=== PATIENT | male | born 1950 | race Caucasian/White ===

== ENCOUNTER 2018-06-15 10:12 | Inpatient (IN) | payer MEDICARE, OTHER, SELFPAY ==
[2018-06-15] VITALS (10 sets, daily range): BP systolic 105–165; BP diastolic 64–96; PULSE 80–106; RESP 15–24; TEMP 36.6; O2SAT 97–100; BMI 38.0
--- NOTE | 2018-06-15 | DI.ECHO.S_ITS ---
[facility] +---------+ : : [address] : : : [place], [place] : : : : [id number] : : : : Phone: [phone] Echocardiogram Report + + :Name: AGUSTIN ALLEN Study Date: 06/16/2018 Height: 72 in : :[facility] Exam Location: [place] Weight: 308 lb : : Gender: Male BSA: 2.6 m2 : :: 1950 Age: 67 yrs BP: 145/92 mmHg: :Reason For Study: Dyspnea/Shortness of Breath : :Ordering Physician: Marques : :Hospitalist Performed By: Benita Proctor : :Referring: [email or web address] : + + Interpretation Summary The left ventricle is normal in size. There is mild-moderate concentric left ventricular hypertrophy. The ejection fraction is estimated to be 40-45%. There is mild to moderate global hypokinesis of the left ventricle. The right ventricle is mildly dilated. Right ventricular systolic function is at the lower limits of normal. No significant valvular pathology seen. The IVC is of normal diameter and collapses greater than 50% with a sniff. This suggests a low right atrial pressure of 3 mm Hg. Procedure: A two-dimensional transthoracic echocardiogram with color flow and Doppler was performed. The study quality was technically adequate. There is no prior echocardiogram noted for this patient. The patient was in sinus tachycardia with heart rates between 108-109 bpm during the exam. Left Ventricle: The left ventricle is normal in size. There is mild-moderate concentric left ventricular hypertrophy. There is no thrombus. The ejection fraction is estimated to be 40-45%. There is mild to moderate global hypokinesis of the left ventricle. Diastolic function could not be accurately assessed due to tachycardia. Right Ventricle: The right ventricle is mildly dilated. Right ventricular systolic function is at the lower limits of normal. Atria: The left atrial size is normal. Borderline right atrial enlargement. The interatrial septum is intact with no evidence for an atrial septal defect. The thickening of interatrial septum suggests lipomatous hypertrophy. Mitral Valve: The mitral valve leaflets appear borderline thickened, but open well. There is mild mitral annular calcification. There is trace mitral regurgitation. Aortic Valve: The aortic valve is trileaflet. The aortic valve opens well. There is no aortic valve stenosis. No aortic regurgitation is present. Tricuspid Valve: The tricuspid valve is not well visualized, but is grossly normal. Pulmonary artery pressures cannot be estimated because of the lack of a measurable TR jet velocity. There is trace tricuspid regurgitation. Pulmonic Valve: The pulmonic valve is not well seen, but is grossly normal. There is a trace or physiologic amount of pulmonic regurgitation. Great Vessels: The ascending aorta is normal in size. The IVC is of normal diameter and collapses greater than 50% with a sniff. This suggests a low right atrial pressure of 3 mm Hg. Pericardium/ Pleura There is no pericardial effusion. There is an anterior echo-free space consistent with a fat pad. There is no pleural effusion. MMode/2D Measurements & Calculations LVIDd: 4.8 cm LVOT diam: 2.3 cm LVIDs: 3.3 cm asc Aorta Diam: 3.4 cm FS: 32.0 % Ao Arch Diam (Prox Trans): 2.5 cm IVSd: 1.2 cm LVPWd: 1.4 cm LV mancera. diameter/BSA (cm/m^2): 1.9 LV sys. diameter/BSA (cm/m^2): 1.3 LA A2 area: 17.6 cm2 RA long axis: 4.9 cm LA A4 area: 12.2 cm2 RA area: 20.3 cm2 LA length (vol): 4.9 cm RA vol: 71.8 ml LA vol: 37.2 ml RA : 28.0 ml/m2 LA vol index: 14.5 ml/m2 TAPSE: 1.7 cm Doppler Measurements & Calculations Ao V2 max: 128.1 cm/sec LVOT Max Manuelito: 106.6 cm/sec Ao V2 mean: 89.9 cm/sec LV V1 max P.5 mmHg Ao max P.6 mmHg LV V1 VTI: 15.5 cm Ao mean P.4 mmHg DOUG(I,D): 3.5 cm2 Ao V2 VTI: 19.0 cm DOUG(V,D): 3.6 cm2 sev ratio: 0.82 DOUG indexed to BSA (cm^2/m^2): 1.4 Reading Physician:SAE
--- NOTE | 2018-06-15 10:25 | DI.RAD.S_ITS ---
PROCEDURE: XR CHEST 1V INDICATIONS: short of breath TECHNIQUE: One view of the chest was acquired. COMPARISON: [facility], , CHEST 2 VIEW, 03/09/2012, 16:15. FINDINGS: Surgical changes and devices: None. Lungs and pleura: On this semiupright portable chest examination, no large pneumothorax or large pleural effusions are seen. Mild, streaky opacities are seen at the lung bases. Mediastinum: Mediastinal contours appear normal. Heart size is normal. Bones and chest wall: No suspicious bony lesions. Age-appropriate bony degenerative changes are seen. Overlying soft tissues appear unremarkable. IMPRESSION: Likely atelectasis is seen at the lung bases. As clinically appropriate, a short-term followup chest series (with PA and lateral views) performed in deep inspiration is suggested for further evaluation. Dictated by: Medhat Reed M.D. on 06/15/2018 at 9:48 Approved by: Medhat Reed M.D. on 06/15/2018 at 9:49
--- NOTE | 2018-06-15 10:55 | ED.SOB ---
HPI - SOB/Dyspnea General Chief Complaint: Shortness of Breath/Dyspnea Stated Complaint: exertional sob Time Seen by Provider: 06/15/18 10:24 Source: patient and EMS Mode of arrival: EMS Limitations: no limitations History of Present Illness Patient is a 67-year-old male with history of diabetes hypertension hyperlipidemia presenting with increasing shortness of breath with exertion ongoing for the last 2 weeks. He says it has progressively gotten worse. He was sent in by his PCP. He actually flew to [place] a few weeks ago he remembers walking through the airport and having extreme shortness of breath causing him to stop. At no time did he have any chest discomfort. He denies any orthopnea fever or productive cough. He does have some mild lower extremity edema. MD Complaint: shortness of breath Relieving factors: nothing Exacerbating factors: exertion Related Data Home Medications Medication Instructions Recorded Confirmed cetirizine 10 mg PO DAILY #0 03/05/12 06/15/18 clonidine HCl 0.2 mg PO BID #0 03/05/12 06/15/18 diltiazem HCl [Cardizem LA] 240 mg PO DAILY #0 03/05/12 06/15/18 lisinopril 40 mg PO DAILY #0 03/05/12 06/15/18 metformin [Glucophage] 1,000 mg PO BID #0 03/05/12 06/15/18 aspirin 81 mg PO QPM 06/15/18 06/15/18 atorvastatin [Lipitor] 40 mg PO QPM 06/15/18 06/15/18 chlorthalidone 25 mg PO DAILY 06/15/18 06/15/18 docosahexanoic acid-epa [Fish Oil] 1 cap PO QPM 06/15/18 06/15/18 docosahexanoic acid-epa [Fish Oil] 2 cap PO QAM 06/15/18 06/15/18 ergocalciferol (vitamin D2) 50,000 unit PO DIRECTED 06/15/18 06/15/18 [Vitamin D2] fluticasone [Flonase Allergy 2 spray INTRANASAL DAILY 06/15/18 06/15/18 Relief] sitagliptin [Januvia] 100 mg PO DAILY 06/15/18 06/15/18 Allergies Allergy/AdvReac Type Severity Reaction Status Date / Time Iodinated Contrast- Oral and Allergy Intermediate Difficulty Verified 06/15/18 10:23 IV Dye Swallowing Review of Systems Review of Systems GENERAL: Denies chills, fatigue, malaise, fever, sweats, travel HEENT: Denies sinus pain, ear pain, sore throat, difficulty swallowing, neck pain RESPIRATORY: See HPI CARDIOVASCULAR: Denies chest pain, palpitations, orthopnea, edema GASTROINTESTINAL: Denies nausea, vomiting, abdominal pain, diarrhea, constipation, melena. : Denies dysuria, frequency, incontinence, hematuria, urinary retention, flank pain. MUSCULOSKELETAL: Denies weakness, joint pain, or bony pain SKIN: No rash, no erythema, no pruritus NEUROLOGIC: Denies weakness, dizziness, headache, numbness, change in speech, confusion PSYCHIATRIC: No concerning psychosocial issues. 12 point review of systems is negative except for those stated above and HPI PFSH Medical History Diabetes (Acute) Hyperlipidemia (Acute) Hypertension (Acute) Social History household members: spouse Smoking Status: Former smoker Exam Initial Vital Signs Initial Vital Signs: Vital Signs Temperature 97.8 F 06/15/18 10:00 Pulse Rate 102 H 06/15/18 10:00 Respiratory Rate 16 06/15/18 10:00 Blood Pressure 141/87 H 06/15/18 10:00 Pulse Oximetry 100 06/15/18 10:00 GENERAL: Alert cooperative elderly male no acute distress HEENT: Head atraumatic,EOMI, pupils reactive, face symmetric, CARDIOVASCULAR: Regular rate and rhythm without murmurs, rubs or gallops. RESPIRATORY: Breath sounds equal bilaterally, no wheezes rales or rhonchi. ABDOMEN: Soft, nontender. Normoactive bowel sounds all 4 quadrants. No guarding or rebound. : No CVA tenderness EXTREMITIES: Normal range of motion, no clubbing. Neurovascularly intact. No noted pitting edema NEUROLOGICAL: Alert and oriented x4.Normal gait and speech. Cranial nerves II through XII grossly intact. SKIN: Warm, dry, no laceration, no petechiae, no rashes or lesions. Course Orders Ordered: ED Orders 06/15/18 10:24 EKG-12 Lead Stat 06/15/18 10:25 XR chest 1V Stat 06/15/18 10:40 B Type Natriuretic Peptide Stat Complete Blood Count AUTO DIFF Stat Comprehensive Metabolic Panel Stat Magnesium Stat Partial Thromboplastin Time Stat Prothrombin Time INR Stat Troponin & CK Cardiac Panel Stat 06/15/18 12:34 CT angio chest PE protocol Stat 06/15/18 12:42 Urine Microscopic Stat 06/15/18 15:21 Education, smoking cessation ONGOING 06/15/18 15:25 Consult to Discharge Planning Routine 06/15/18 18:17 Lipid Panel Routine 06/15/18 18:38 Trop I [Troponin I] Urgent 06/15/18 22:30 Troponin I Routine 06/16/18 05:30 Complete Blood Count AUTO DIFF DAILY Comprehensive Metabolic Panel DAILY 06/16/18 08:00 EKG-12 Lead Routine Acetaminophen (Tylenol) 650 mg PO Q6HR PRN PRN Reason: As Needed for Fever/Mild Pain Al Hydrox/Mg Hydrox/Simethicone (Maalox Plus) 30 ml PO Q6HR PRN PRN Reason: Dyspepsia Albuterol (Ventolin) 2.5 mg INH NOW PRN PRN Reason: Shortness Of Breath Last Admin: 06/15/18 13:39 Dose: 2.5 mg Aspirin (Aspirin Ec) 81 mg PO QPM [facility] Last Admin: 06/15/18 17:45 Dose: 81 mg Atorvastatin Calcium (Lipitor) 40 mg PO QPM [facility] Last Admin: 06/15/18 17:46 Dose: 40 mg Calcium Carbonate (Tums) 1,000 mg PO Q4HR PRN PRN Reason: Dyspepsia Chlorthalidone (Hygroton) 25 mg PO DAILY [facility] Clonidine HCl (Catapres) 0.2 mg PO BID [facility] Diltiazem HCl (Cardizem Cd) 240 mg PO DAILY [facility] Ergocalciferol (Vitamin D2) 50,000 unit PO DIRECTED [facility] Fluticasone Propionate (Flonase) 2 spray NASAL DAILY [facility] Heparin Sodium (Porcine) (Heparin) 5,000 unit SUBCUT BID [facility] Sodium Chloride (Normal Saline 0.9%) 1,000 mls @ 100 mls/hr IV CONT [facility] Last Admin: 06/15/18 18:10 Dose: 100 mls/hr Loratadine (Claritin) 10 mg PO DAILY [facility] Metformin HCl (Glucophage) 1,000 mg PO 0800,1800 [facility] Last Admin: 06/15/18 17:46 Dose: 1,000 mg Metoprolol Tartrate (Lopressor) 5 mg IV Q6H PRN PRN Reason: SBP>180 AND/OR HR >110 Morphine Sulfate (Morphine) 2 mg IV Q4HR PRN PRN Reason: Pain, Moderate (4-6) Nitroglycerin (Nitrostat) 0.4 mg SL [id number] PRN PRN Reason: Chest Pain Ondansetron HCl (Zofran) 4 mg IV Q8HR PRN PRN Reason: Nausea And Vomiting Sitagliptin Phosphate (Januvia) 100 mg PO DAILY [facility] Discontinued Medications Aspirin (Aspirin) 325 mg PO NOW ONE Stop: 06/15/18 15:27 Diphenhydramine HCl (Benadryl) 25 mg IV NOW ONE Stop: 06/15/18 12:39 Last Admin: 06/15/18 12:42 Dose: 25 mg Lisinopril (Zestril) 40 mg PO DAILY [facility] Methylprednisolone (Solu-Medrol 125 Mg Vial) 125 mg IV NOW ONE Stop: 06/15/18 12:39 Last Admin: 06/15/18 12:42 Dose: 125 mg Vital Signs - 8 hr 06/15/18 11:53 06/15/18 12:00 06/15/18 13:30 Temperature Pulse Rate 84 88 80 Respiratory Rate 15 20 20 Blood Pressure Blood Pressure [Left Arm] 105/70 106/69 128/64 Pulse Oximetry 97 99 98 06/15/18 13:39 06/15/18 16:00 06/15/18 16:10 Temperature Pulse Rate 82 94 H 95 H Respiratory Rate 16 23 19 Blood Pressure Blood Pressure [Left Arm] 123/86 123/86 Pulse Oximetry 99 99 98 06/15/18 16:53 06/15/18 17:10 Temperature 97.8 F Pulse Rate 95 H 94 H Respiratory Rate 24 19 Blood Pressure 151/84 H 165/96 H Blood Pressure [Left Arm] Pulse Oximetry 98 MDM - SOB/Dyspnea Lab Data Attestation: I reviewed the patient's lab results. Result diagrams: 06/15/18 10:40 06/15/18 10:40 Lab Results 06/15/18 06/15/18 06/15/18 Range/Units 10:40 10:40 10:40 WBC 10.0 (4.5-11.0) X10^3/uL RBC 5.08 (4.5-5.9) X10^6/uL Hgb 12.4 L (13.5-17.5) g/dL Hct 37.4 L (41-53) % MCV 73.6 L (80-100) fL MCH 24.4 L (26-34) PG MCHC 33.1 (30-36) % RDW 16.7 H (11.6-14.8) % Plt Count 246 (150-400) X10^3/uL Neut % (Auto) 79.3 H (50-75) % Lymph % (Auto) 11.7 L (25-40) % [place] % (Auto) 6.5 (3-14) % Eos % (Auto) 1.4 L (2-4) % Baso % (Auto) 1.1 (0-2) % Neut # (Auto) 7900 H (4170-1013) /uL RBC Morphology Normal morphology PT 12.3 (10.1-12.7) SECONDS INR 1.1 (0.9-1.3) APTT 19 L (26.4-36.2) SECONDS Sodium 137 (137-145) mmol/L Potassium 4.7 (3.4-5.1) mmol/L Chloride 97 L (98-107) mmol/L Carbon Dioxide 23 (22-32) mmol/L BUN 32 H (9-20) mg/dL Creatinine 1.60 H (0.66-1.25) mg/dL Estimated GFR 43.3 L (>60) mL/min BUN/Creatinine Ratio 20.0 (6-22) Glucose 136 H (80-110) mg/dL Calcium 9.3 (8.4-10.2) mg/dL Magnesium 1.6 (1.6-2.3) mg/dL Total Bilirubin 0.5 (0.2-1.3) mg/dL AST 27 (17-59) IU/L ALT 30 (21-72) IU/L Alkaline Phosphatase 85 (38-126) U/L Total Creatine Kinase 86 (55-170) U/L CK-MB (CK-2) TNP CK-MB (CK-2) Rel Index TNP Troponin I < 0.012 (0.01-0.034) ng/mL B-Natriuretic Peptide < 30.0 (<100) Total Protein 7.3 (6.3-8.2) g/dL Albumin 4.4 (3.5-5.0) g/dL Globulin 2.9 (1.7-4.1) g/dL Albumin/Globulin Ratio 1.5 (1.0-2.8) Urine RBC (0-5/HPF) Urine WBC (0-5/HPF) Ur Squamous Epith Cells Urine Bacteria (None) Ur Culture Indicated? Micro UA Comment 06/15/18 Range/Units 12:42 WBC (4.5-11.0) X10^3/uL RBC (4.5-5.9) X10^6/uL Hgb (13.5-17.5) g/dL Hct (41-53) % MCV (80-100) fL MCH (26-34) PG MCHC (30-36) % RDW (11.6-14.8) % Plt Count (150-400) X10^3/uL Neut % (Auto) (50-75) % Lymph % (Auto) (25-40) % [place] % (Auto) (3-14) % Eos % (Auto) (2-4) % Baso % (Auto) (0-2) % Neut # (Auto) (7961-0152) /uL RBC Morphology PT (10.1-12.7) SECONDS INR (0.9-1.3) APTT (26.4-36.2) SECONDS Sodium (137-145) mmol/L Potassium (3.4-5.1) mmol/L Chloride (98-107) mmol/L Carbon Dioxide (22-32) mmol/L BUN (9-20) mg/dL Creatinine (0.66-1.25) mg/dL Estimated GFR (>60) mL/min BUN/Creatinine Ratio (6-22) Glucose (80-110) mg/dL Calcium (8.4-10.2) mg/dL Magnesium (1.6-2.3) mg/dL Total Bilirubin (0.2-1.3) mg/dL AST (17-59) IU/L ALT (21-72) IU/L Alkaline Phosphatase (38-126) U/L Total Creatine Kinase (55-170) U/L CK-MB (CK-2) CK-MB (CK-2) Rel Index Troponin I (0.01-0.034) ng/mL B-Natriuretic Peptide (<100) Total Protein (6.3-8.2) g/dL Albumin (3.5-5.0) g/dL Globulin (1.7-4.1) g/dL Albumin/Globulin Ratio (1.0-2.8) Urine RBC 5-10/hpf H (0-5/HPF) Urine WBC None seen (0-5/HPF) Ur Squamous Epith Cells 5-10 /hpf H Urine Bacteria None seen (None) Ur Culture Indicated? Cult not indicated Micro UA Comment Not Reportable Point of Care Testing Glucose POC 222 Urine Dip Bedside Urine Glucose Negative Bedside Urine Bilirubin - Negative Bedside Urine Ketone - Negative Urine Specific [place] 1.020 Bedside Urine Occult Blood ++ Bedside Urine pH 5.5 Bedside Urine Protein +/- 15 Bedside Urine Urobilinogen - Negative Bedside Urine Nitrite - Negative Bedside Urine Leukocytes - Negative Esterase Imaging Data Chest x-ray: Radiologist's impression: PROCEDURE: XR CHEST 1V INDICATIONS: short of breath TECHNIQUE: One view of the chest was acquired. COMPARISON: [facility], CHEST 2 VIEW, 03/09/2012, 16:15. FINDINGS: Surgical changes and devices: None. Lungs and pleura: On this semiupright portable chest examination, no large pneumothorax or large pleural effusions are seen. Mild, streaky opacities are seen at the lung bases. Mediastinum: Mediastinal contours appear normal. Heart size is normal. Bones and chest wall: No suspicious bony lesions. Age-appropriate bony degenerative changes are seen. Overlying soft tissues appear unremarkable. IMPRESSION: Likely atelectasis is seen at the lung bases. As clinically appropriate, a short-term followup chest series (with PA and lateral views) performed in deep inspiration is suggested for further evaluation. Dictated by: Medhat Reed M.D. on 06/15/2018 at 9:48 CT PE: Radiologist's impression: PROCEDURE: CT ANGIO CHEST PE PROTOCOL INDICATIONS: hypoxic recent flight TECHNIQUE: After the administration of intravenous contrast, 2 mm thick sections acquired from the pulmonary apices to the posterior costophrenic angles. 3-dimensional maximum intensity projection (MIP) coronal and sagittal reformats were then acquired through the thorax. For radiation dose reduction, the following was used: automated exposure control, adjustment of mA and/or kV according to patient size. COMPARISON: [facility], , PELVIS W/O CONTRAST, 02/20/2014, 11:28. FINDINGS: Image quality: Excellent. Pulmonary arteries: Pulmonary arteries are normal in size, and demonstrate no intraluminal filling defects to suggest central pulmonary embolism. Lungs and pleura: Lungs are clear. No pleural effusions or pneumothorax. Central and peripheral airways are patent. Mediastinum: Heart size is normal, without pericardial effusion. No mediastinal or hilar adenopathy. Thoracic aorta is normal in caliber and enhancement. Esophagus is normal in caliber, without hiatal hernia. Bones and chest wall: No suspicious bony lesions. Ribs and thoracic spine appear intact throughout. Thyroid gland is unremarkable. No axillary or supraclavicular adenopathy. Abdomen: Low attenuation hepatic foci are present with the largest most suggestive of cyst. Visualized upper abdominal solid organs appear normal in the early arterial phase of enhancement. IMPRESSION: 1. Lungs are clear. No pulmonary embolism. Dictated by: Kamini Barajas M.D. on 06/15/2018 at 13:11 ECG Data Attestation: I personally reviewed and interpreted this ECG as follows: Prior ECG tracings: available for review Interpretation: Low voltage, sinus tachycardia rate 100 here interval [address] changes MDM Narrative Medical decision making narrative: Patient is an ambulation trial. His heart rate increases to the 130s O2 level is at about 93 94% and feels as though he needs to stop. Patient has a negative CT workup EKG and troponin is negative. However shortness of breath can be an angina equivalent he has no signs of CHF. He denies any exposure to chemicals or any Agent [place] which could give him lung disease or problems. Patient will be admitted to observation, Dr. Whitten accepts Discharge Plan Departure Patient Disposition: Admitted as Observation Clinical Impression: Chest pain Discharge Date/Time: 06/15/18 17:10 Interventions: ED Discharge Assessment Last Done: 06/15/18 16:53 Admit Date/Time: 06/15/18 15:58 Admit Provider: Kinga Kelley
[2018-06-15 10:58] LABS: INR 1.1 (0.9-1.3); Prothrombin Time 12.3 SECONDS (10.1-12.7)
[2018-06-15 10:59] LABS: Basophils Percent Auto 1.1 % (0-2); Eosinophils Percent Auto 1.4 % (2-4); Hematocrit 37.4 % (41-53); Hemoglobin 12.4 g/dL (13.5-17.5); Lymphocytes Percent Auto 11.7 % (25-40); Mean Corpuscular HGB Conc 33.1 % (30-36); Mean Corpuscular Hemoglobin 24.4 PG (26-34); Mean Corpuscular Volume 73.6 fL (80-100); Monocytes Percent Auto 6.5 % (3-14); Neutrophils Absolute Auto 7900 /uL (3000-5900); Neutrophils Percent Auto 79.3 % (50-75); Platelet Count 246 X10^3/uL (150-400); Red Blood Cell Count 5.08 X10^6/uL (4.5-5.9); Red Cell Distribution Width 16.7 % (11.6-14.8)
[2018-06-15 11:00] LABS: PTT Partial Thromboplastin Tim 19 SECONDS (26.4-36.2)
[2018-06-15 11:01] LABS: Add Manual Diff / Slide Review SLIDE REVIEW
[2018-06-15 11:02] LABS: Alanine Aminotransferase 30 IU/L (21-72); Albumin 4.4 g/dL (3.5-5.0); Albumin Globulin Ratio 1.5 (1.0-2.8); Alkaline Phosphatase 85 U/L (38-126); Aspartate Aminotransferase 27 IU/L (17-59); Bilirubin Total 0.5 mg/dL (0.2-1.3); Blood Urea Nitrogen 32 mg/dL (9-20); Calcium 9.3 mg/dL (8.4-10.2); Carbon Dioxide 23 mmol/L (22-32); Chloride 97 mmol/L (98-107); Creatine Kinase 86 U/L (55-170); Estimated Glomerular Filt Rate 43.3 mL/min (>60); Globulin 2.9 g/dL (1.7-4.1); Glucose 136 mg/dL (80-110); HEMOLYSIS < 15 (0-50); Magnesium 1.6 mg/dL (1.6-2.3); Potassium 4.7 mmol/L (3.4-5.1); Sodium 137 mmol/L (137-145); Total Protein 7.3 g/dL (6.3-8.2)
[2018-06-15 11:14] LABS: Troponin I < 0.012 ng/mL (0.01-0.034)
[2018-06-15 11:30] LABS: B Type Natriuretic Peptide < 30.0 (<100)
[2018-06-15 11:57] LABS: RBC Morphology Normal Morphology
--- NOTE | 2018-06-15 12:34 | DI.CT.S_ITS ---
PROCEDURE: CT ANGIO CHEST PE PROTOCOL INDICATIONS: hypoxic recent flight TECHNIQUE: After the administration of intravenous contrast, 2 mm thick sections acquired from the pulmonary apices to the posterior costophrenic angles. 3-dimensional maximum intensity projection (MIP) coronal and sagittal reformats were then acquired through the thorax. For radiation dose reduction, the following was used: automated exposure control, adjustment of mA and/or kV according to patient size. COMPARISON: [facility], MR, PELVIS W/O CONTRAST, 02/20/2014, 11:28. FINDINGS: Image quality: Excellent. Pulmonary arteries: Pulmonary arteries are normal in size, and demonstrate no intraluminal filling defects to suggest central pulmonary embolism. Lungs and pleura: Lungs are clear. No pleural effusions or pneumothorax. Central and peripheral airways are patent. Mediastinum: Heart size is normal, without pericardial effusion. No mediastinal or hilar adenopathy. Thoracic aorta is normal in caliber and enhancement. Esophagus is normal in caliber, without hiatal hernia. Bones and chest wall: No suspicious bony lesions. Ribs and thoracic spine appear intact throughout. Thyroid gland is unremarkable. No axillary or supraclavicular adenopathy. Abdomen: Low attenuation hepatic foci are present with the largest most suggestive of cyst. Visualized upper abdominal solid organs appear normal in the early arterial phase of enhancement. IMPRESSION: 1. Lungs are clear. No pulmonary embolism. Dictated by: Kamini Barajas M.D. on 06/15/2018 at 13:11 Approved by: Kamini Barajas M.D. on 06/15/2018 at 13:21
[2018-06-15] MEDS: methylPREDNISolone 125 MG/2 ML VIAL IV (12:42)
[2018-06-15] MEDS: diphenhydrAMINE 50 MG/ML VIAL 25 MG IV (12:42)
[2018-06-15 12:43] LABS: Bacteria Urine None Seen; WBC Urine None Seen (0-5/HPF)
[2018-06-15 13:30] LABS: Culture Indicated Urine Cult Not Indicated; RBC Urine 5-10/HPF (0-5/HPF); Squamous Epithelial Cell Urine 5-10 /HPF
[2018-06-15] MEDS: ALBUTEROL 2.5 MG/3 ML NEB (ADULT) INH (13:39)
--- NOTE | 2018-06-15 16:55 | P.HP_ITS ---
History of Present Illness Date Patient Seen: 06/15/18 Time Patient Seen: 16:26 Chief complaint: exertional sob Narrative: THIS IS A 67-YEAR-OLD MALE WITH NO PRIOR HISTORY OF HEART DISEASE. THE PATIENT HAS A HISTORY OF HIGH BLOOD PRESSURE, DIABETES, WELL OBSTRUCTIVE SLEEP APNEA. PATIENT PRESENTED TO THE HOSPITAL COMPLAINING OF WORSENING SHORTNESS OF BREATH AND DYSPNEA ON EXERTION. PATIENT STATED THAT FOR THE LAST FEW MONTHS HE HAS BEING GETTING SIGNIFICANTLY SHORT OF BREATH DOING ABLATION. THIS IS MADE BETTER BY SITTING DOWN AND REST FOR A WHILE. HE REPORTED HIS LEVEL OF ACTIVITY IS BEING MODERATE BEFORE THE ONSET OF HIS SYMPTOMS. HOWEVER NOW HE IS EFFECTIVE BECAUSE OF THE SHORTNESS OF BREATH HE EVER DENIED ANY ORTHOPNEA. HE ALSO DENIED ANY CHEST PALPITATIONS. HE HAS NOT BEEN TRAVELING OUTSIDE THE COUNTRY. HE DENIED ANY SICK CONTACTS. HE DENIES ANY FEVER OR CHILLS. NO COUGH. HE USED TO SMOKE ABOUT 1 PACK A DAY. HOWEVER HE QUITED IN 2000 SWELLING WERE REPORTED TO HIS LOWER EXTREMITIES. HOWEVER HE DENIED ANY RECENT WEIGHT LOSS OR WEIGHT GAIN. NO HEAT AND COLD INTOLERANCE. NO SKIN LESIONS FIGURED NO SKIN RASH. NO CALVES DISCOMFORT. NO TINGLING OR NUMBNESS TO EXTREMITIES. NO BLOOD IN THE URINE. NO BLOOD PER RECTUM. NO BLOOD IN HIS SPUTUM. NO NAUSEA, VOMITING, DIARRHEA OR CONSTIPATION. NO SYNCOPAL OR PRESYNCOPAL EPISODE. Patient History Comment: KNEE SURGERY, PROSTATECTOMY, LAMINECTOMY; OBSTRUCTIVE SLEEP APNEA, OSTEOARTHRITIS, HYPERTENSION, DIABETES, HYPERTENSION. Family & Social History Safety & Behavioral: Feels Safe in Current Yes Environment Been Physically Hurt or No Threatened By a Person Tobacco & Substance use: Smoking Status Former smoker alcohol intake frequency 0-2 drinks per day Substance Use Type does not use Meds Home Medications Medication Instructions Recorded Confirmed Type cetirizine 10 mg PO DAILY #0 03/05/12 06/15/18 History clonidine HCl 0.2 mg PO BID #0 03/05/12 06/15/18 History diltiazem HCl [Cardizem LA] 240 mg PO DAILY #0 03/05/12 06/15/18 History lisinopril 40 mg PO DAILY #0 03/05/12 06/15/18 History metformin [Glucophage] 1,000 mg PO BID #0 03/05/12 06/15/18 History aspirin 81 mg PO QPM 06/15/18 06/15/18 History atorvastatin [Lipitor] 40 mg PO QPM 06/15/18 06/15/18 History chlorthalidone 25 mg PO DAILY 06/15/18 06/15/18 History docosahexanoic acid-epa [Fish Oil] 1 cap PO QPM 06/15/18 06/15/18 History docosahexanoic acid-epa [Fish Oil] 2 cap PO QAM 06/15/18 06/15/18 History ergocalciferol (vitamin D2) 50,000 unit PO DIRECTED 06/15/18 06/15/18 History [Vitamin D2] fluticasone [Flonase Allergy 2 spray INTRANASAL DAILY 06/15/18 06/15/18 History Relief] sitagliptin [Januvia] 100 mg PO DAILY 06/15/18 06/15/18 History Allergies Allergy/AdvReac Type Severity Reaction Status Date / Time Iodinated Contrast- Oral and Allergy Intermediate Difficulty Verified 06/15/18 10:23 IV Dye Swallowing Review of Systems Review of Systems All systems reviewed & are unremarkable except as noted in HPI and below Exam Vital Signs (past 8 hours): - 06/15/18 10:00 06/15/18 11:53 06/15/18 12:00 Temperature 97.8 F Pulse Rate 102 H 84 88 Respiratory Rate 16 15 20 Blood Pressure 141/87 H Blood Pressure [Left Arm] 105/70 106/69 Pulse Oximetry 100 97 99 06/15/18 13:30 06/15/18 13:39 06/15/18 16:00 Temperature Pulse Rate 80 82 94 H Respiratory Rate 20 16 23 Blood Pressure Blood Pressure [Left Arm] 128/64 123/86 Pulse Oximetry 98 99 99 06/15/18 16:10 Temperature Pulse Rate 95 H Respiratory Rate 19 Blood Pressure Blood Pressure [Left Arm] 123/86 Pulse Oximetry 98 Oxygen Delivery Method Room Air Narrative Exam Narrative: NO ACUTE DISTRESS. PATIENT IS ALERT ORIENTED X3. ABLE TO FINISH A FULL SENTENCE WITHOUT HAVING TO STOP BECAUSE OF SHORTNESS OF BREATH VITAL SIGNS STABLE HEAD ATRAUMATIC NORMOCEPHALIC NECK : SUPPLE WITHOUT ADENOPATHY EYE: EOMI, PERRLA, NORMAL CONJUNCTIVA CHEST: REGULAR RATE.. NO RUBS. PMI IS NON DISPLACED. 1/6 SYSTOLIC MURMUR NOTED ON THE 2ND INTRACOSTAL IN THE RIGHT; NO HEAVE ; NORMAL S1-S2 PULMONARY DECREASED BREATH SOUNDS OVER THE BASES. MILD BIBASILAR CRACKLES NOTED ; NO INCREASED DULLNESS TO PERCUSSION EXTREMITIES: 1+ EDEMA. NONPITTING. NO CYANOSIS /CLUBBING NOTED. NEURO: CRANIAL NERVES 2-12 GROSSLY INTACT. NO FOCAL NEUROLOGICAL DEFICIT NOTED. MSK: NORMAL RANGE OF MOTION FOR AGE. NO JOINT EFFUSION. SKIN: NORMAL FOR ETHNICITY; NO ECCHYMOSIS. NO LESION. FAIR TURGOR. : NORMAL EXTERNAL GENITALIA. PSYCH : APPROPRIATE MOOD AND AFFECT. ALERT AWAKE ORIENTED X3 Objective Labs Result Diagrams: 06/15/18 10:40 06/15/18 10:40 Labs: Laboratory Results - last 24 hr 06/15/18 06/15/18 06/15/18 10:40 10:40 10:40 WBC 10.0 RBC 5.08 Hgb 12.4 L Hct 37.4 L MCV 73.6 L MCH 24.4 L MCHC 33.1 RDW 16.7 H Plt Count 246 Neut % (Auto) 79.3 H Lymph % (Auto) 11.7 L [place] % (Auto) 6.5 Eos % (Auto) 1.4 L Baso % (Auto) 1.1 Neut # (Auto) 7900 H RBC Morphology Normal morphology PT 12.3 INR 1.1 APTT 19 L Sodium 137 Potassium 4.7 Chloride 97 L Carbon Dioxide 23 BUN 32 H Creatinine 1.60 H Estimated GFR 43.3 L BUN/Creatinine Ratio 20.0 Glucose 136 H Calcium 9.3 Magnesium 1.6 Total Bilirubin 0.5 AST 27 ALT 30 Alkaline Phosphatase 85 Total Creatine Kinase 86 CK-MB (CK-2) TNP CK-MB (CK-2) Rel Index TNP Troponin I < 0.012 B-Natriuretic Peptide < 30.0 Total Protein 7.3 Albumin 4.4 Globulin 2.9 Albumin/Globulin Ratio 1.5 Urine RBC Urine WBC Ur Squamous Epith Cells Urine Bacteria Ur Culture Indicated? Micro UA Comment 06/15/18 12:42 WBC RBC Hgb Hct MCV MCH MCHC RDW Plt Count Neut % (Auto) Lymph % (Auto) [place] % (Auto) Eos % (Auto) Baso % (Auto) Neut # (Auto) RBC Morphology PT INR APTT Sodium Potassium Chloride Carbon Dioxide BUN Creatinine Estimated GFR BUN/Creatinine Ratio Glucose Calcium Magnesium Total Bilirubin AST ALT Alkaline Phosphatase Total Creatine Kinase CK-MB (CK-2) CK-MB (CK-2) Rel Index Troponin I B-Natriuretic Peptide Total Protein Albumin Globulin Albumin/Globulin Ratio Urine RBC 5-10/hpf H Urine WBC None seen Ur Squamous Epith Cells 5-10 /hpf H Urine Bacteria None seen Ur Culture Indicated? Cult not indicated Micro UA Comment Not Reportable Assessment & Plan Plan: Assessment/Plan Narrative: IMPRESSION AND PLAN SHORTNESS OF BREATH DYSPNEA ON EXERTION. THIS IS EQUIVALENT TO CHEST PAIN. PATIENT HAS MULTIPLE COMORBIDITIES INCLUDE OBESITY; HTN AND DM2; WILL GET AN ECHO ; STRESS TESTING WILL BE ORDERED; VIOLA; CK LIPIDS; TELE AT ALL TIMES; EKG IN AM; SERIAL TROP X 3; ADDITIONAL MANAGEMENT INDICATED CLINICALLY ACUTE RENAL FAILURE; COULD HAVE A COMPONENT OF CHRONIC RENAL DISEASE FROM NEPHROSCLEROSIS FROM DIABETES AND HYPERTENSION. GET URINE ELECTROLYTES; CONSIDER ULTRASOUND OF THE KIDNEYS; STRICT IO; IVF TO BE ORDERED; DOSE MEDS PER GFR; AVOID NEPHROTOXINS; MICROCYTIC ANEMIA; CONSIDER COMPONENT OF ANEMIA OF CD; GET IRON PANEL; DAILY LABS TO FOLLOW OBESITY; OUTPATIENT MANAGEMENT ; LIFESTYLE CHANGES DM2; RESTARTED ON HOME MEDS; INSULIN SLIDING SCALE; HA1C IN AM HTN PER HX; BP IS WELL CONTROLLED; RESTART ON HOME MEDS; PRN MEDS ; ADJUST REGIMENT INDICATED EXPECTED STAY IS LIKELY 24 HRS IF ALL TESTS ARE NEG
[2018-06-15] MEDS: ASPIRIN EC 81 MG TABLET PO (17:45)
[2018-06-15] MEDS: ATORVASTATIN 20 MG TABLET 40 MG PO (17:46)
[2018-06-15] MEDS: METFORMIN HCL 500 MG TABLET 1000 MG PO (17:46)
[2018-06-15] MEDS: SODIUM CHLORIDE 0.9% 1,000 ML 100 ML IV (18:10)
[2018-06-15 19:20] LABS: Cholesterol 154 mg/dL (140-199); HDL Cholesterol 38 mg/dL (40-60); LDL Cholesterol Calculated 83 mg/dL (<100); Triglycerides 163 mg/dL (35-150)
[2018-06-15 19:32] LABS: Troponin I < 0.012 ng/mL (0.01-0.034)
[2018-06-15] MEDS: HEPARIN 5,000 UNIT/ML VIAL 5000 UNIT SUBCUT (21:58)
[2018-06-15 21:59] LABS: HEMOLYSIS < 15 (0-50); Iron 38 ug/dL (49-181)
[2018-06-15] MEDS: cloNIDine 0.1 MG TABLET 0.2 MG PO (21:59)
[2018-06-15] MEDS: ASPIRIN 325 MG TABLET PO (22:08)
[2018-06-15 22:09] LABS: Percent Iron Saturation 12 % (20-50); Total Iron Binding Capacity 310 ug/dL (261-462); Transferrin 246 mg/dL (206-381)
[2018-06-15 23:18] LABS: Troponin I < 0.012 ng/mL (0.01-0.034)
[2018-06-16] VITALS (11 sets, daily range): BP systolic 141–168; BP diastolic 78–112; PULSE 81–110; RESP 16–20; TEMP 36.4–36.9; O2SAT 97–98
[2018-06-16] MEDS: SODIUM CHLORIDE 0.9% 1,000 ML 100 ML IV ×3 (03:34→23:17)
[2018-06-16 06:07] LABS: Add Manual Diff / Slide Review NO; Basophils Percent Auto 0.3 % (0-2); Eosinophils Percent Auto 0.1 % (2-4); Hematocrit 35.8 % (41-53); Hemoglobin 11.8 g/dL (13.5-17.5); Lymphocytes Percent Auto 9.1 % (25-40); Mean Corpuscular HGB Conc 33.1 % (30-36); Mean Corpuscular Hemoglobin 24.4 PG (26-34); Mean Corpuscular Volume 73.9 fL (80-100); Monocytes Percent Auto 2.7 % (3-14); Neutrophils Absolute Auto 9000 /uL (3000-5900); Neutrophils Percent Auto 87.8 % (50-75); Platelet Count 244 X10^3/uL (150-400); Red Blood Cell Count 4.85 X10^6/uL (4.5-5.9); Red Cell Distribution Width 17.2 % (11.6-14.8); White Blood Cell Count 10.2 X10^3/uL (4.5-11.0)
[2018-06-16 06:18] LABS: Alanine Aminotransferase 23 IU/L (21-72); Albumin Globulin Ratio 1.5 (1.0-2.8); Alkaline Phosphatase 82 U/L (38-126); Aspartate Aminotransferase 22 IU/L (17-59); BUN Creatinine Ratio 23.6 (6-22); Bilirubin Total 0.5 mg/dL (0.2-1.3); Blood Urea Nitrogen 33 mg/dL (9-20); Calcium 8.7 mg/dL (8.4-10.2); Carbon Dioxide 20 mmol/L (22-32); Chloride 99 mmol/L (98-107); Estimated Glomerular Filt Rate 50.5 mL/min (>60); Globulin 2.6 g/dL (1.7-4.1); Glucose 203 mg/dL (80-110); HEMOLYSIS < 15 (0-50); Sodium 135 mmol/L (137-145); Total Protein 6.6 g/dL (6.3-8.2)
[2018-06-16 06:25] LABS: Potassium 5.1 mmol/L (3.4-5.1)
--- NOTE | 2018-06-16 06:55 | PC.NURSE ---
pt has been NPO since midnight. no new complaints. call light in reach. bed alarm active.
[2018-06-16] MEDS: CHLORTHALIDONE 25 MG TABLET PO (09:13)
[2018-06-16] MEDS: SITAGLIPTIN 50 MG TABLET 100 MG PO (09:13)
[2018-06-16] MEDS: cloNIDine 0.1 MG TABLET 0.2 MG PO ×2 (09:13→17:41)
[2018-06-16] MEDS: METFORMIN HCL 500 MG TABLET 1000 MG PO ×2 (09:13→17:40)
[2018-06-16] MEDS: HEPARIN 5,000 UNIT/ML VIAL 5000 UNIT SUBCUT ×2 (09:13→20:27)
[2018-06-16] MEDS: LORATADINE 10 MG TABLET PO (09:13)
[2018-06-16] MEDS: dilTIAZem CD 240 MG CAP PO (09:23)
--- NOTE | 2018-06-16 12:34 | PM.TREADMILL ---
Cardiac Stress Test Report Referral & Results Date Patient Seen: 06/16/18 Time Patient Seen: 12:24 Indication: Dyspnea Rest ECG: Unremarkable Procedure Note: After both written and verbal informed consent the patient had an IV started by the diagnostic imaging RN and then was hooked up to the treadmill monitoring system and was then injected with the Hemalatha scan material. The Cardiolite was then immediately administered. Exercise was achieved with minimal upper and lower extremity movements while on the gurney for 3 min. The patient had a normal response to all infused materials. He did feel some dyspnea similar to what presented him to the hospital but oxygen saturation remained normal at 96% Impression: Normal response to infuse materials Perfusion imaging will be reported separately Please note: Actual ECG tracings can be found in the PACS system.
--- NOTE | 2018-06-16 12:48 | CM.IDA ---
Addendum entered by JAZMINE Washburn 06/16/18 12:48: PCP is Dr Murillo at the [facility]. Original Note: Discharge Planning/Care Management CM Discharge Assessment Start: 06/16/18 12:41 Freq: Status: Active Protocol: Document 06/16/18 12:42 ALTAGRACIA (Rec: 06/16/18 12:48 ALTAGRACIA [id number]) Discharge Planning Assessment Assigned Data Sme JAZMINE Baum DPOA/Assigned Designee Name Anni Reese, spouse Contact Information [phone] home [phone] cell Advance Directives? Yes History Provided By Patient Prior Living Arrangements House Household Members spouse Type of transporation used prior to Drives own vehicle admit Independent with ADL's Yes Is patient alert and oriented? Yes Barriers to Discharge No Comment Met w/pt and his , explained SW role. Pt explains he will be going for his stress test in 5 minutes. Pt is indp at baseline, also indp and active and both confident about pt's return home when medically cleared. No expected barriers to safe [place] home. Discharge Plan Home Transportation Arrangement Family Whiteboard Updated in Patient Room with Yes name and ext. # of Data Sme Review Status In Process
--- NOTE | 2018-06-16 16:58 | P.PN_ITS ---
Subjective Date Patient Seen: 06/16/18 Interval history: Chart reviewed patient seen and examined. He denies any chest pain. He does note palpitations and shortness of breath with minimal exertion. His initial stress test showed inferior wall reversible defect. He is awaiting 2nd phase resting study tomorrow. Exam Vital Signs (past 8 hours): - 06/16/18 11:33 06/16/18 11:45 06/16/18 15:25 Temperature 97.5 F L 97.6 F Pulse Rate 108 H 107 H Respiratory Rate 16 18 Blood Pressure 145/95 H 156/87 H Pulse Oximetry 97 98 98 Oxygen Delivery Method Room Air Narrative Exam Narrative: Pleasant male resting comfortably in no acute distress Cardiac exam: Regular rate and rhythm normal S1 and S2 Lungs: Clear to auscultation Abdomen soft nontender nondistended Extremities: No edema Objective Labs Result Diagrams: 06/16/18 05:38 06/16/18 05:38 Labs: Laboratory Results - last 24 hr 06/15/18 06/15/18 06/15/18 15:26 18:17 18:38 WBC RBC Hgb Hct MCV MCH MCHC RDW Plt Count Neut % (Auto) Lymph % (Auto) [place] % (Auto) Eos % (Auto) Baso % (Auto) Neut # (Auto) Sodium Potassium Chloride Carbon Dioxide BUN Creatinine Estimated GFR BUN/Creatinine Ratio Glucose Calcium Iron 38 L TIBC 310 % Saturation 12 L Transferrin 246 Total Bilirubin AST ALT Alkaline Phosphatase Troponin I < 0.012 Total Protein Albumin Globulin Albumin/Globulin Ratio Triglycerides 163 H Cholesterol 154 LDL Cholesterol, Calc 83 HDL Cholesterol 38 L 06/15/18 06/16/18 06/16/18 22:33 05:38 05:38 WBC 10.2 RBC 4.85 Hgb 11.8 L Hct 35.8 L MCV 73.9 L MCH 24.4 L MCHC 33.1 RDW 17.2 H Plt Count 244 Neut % (Auto) 87.8 H Lymph % (Auto) 9.1 L [place] % (Auto) 2.7 L Eos % (Auto) 0.1 L Baso % (Auto) 0.3 Neut # (Auto) 9000 H Sodium 135 L Potassium 5.1 Chloride 99 Carbon Dioxide 20 L BUN 33 H Creatinine 1.40 H Estimated GFR 50.5 L BUN/Creatinine Ratio 23.6 H Glucose 203 H Calcium 8.7 Iron TIBC % Saturation Transferrin Total Bilirubin 0.5 AST 22 ALT 23 Alkaline Phosphatase 82 Troponin I < 0.012 Total Protein 6.6 Albumin 4.0 Globulin 2.6 Albumin/Globulin Ratio 1.5 Triglycerides Cholesterol LDL Cholesterol, Calc HDL Cholesterol Assessment & Plan (1) Unstable angina: Problem details: Weight resting study tomorrow. The patient gets shortness of breath with exertion will treat with nitrates Current visit: Yes Status: Acute (2) Tachycardia: Problem details: Heart rate well controlled. Will continue his Cardizem Current visit: Yes Status: Acute (3) Dyspnea on exertion: Problem details: Will continue to follow Current visit: Yes Status: Acute Quality VTE Deep Vein Thrombosis/Pulmonary Embolism Present on Admission: No
[2018-06-16] MEDS: ATORVASTATIN 20 MG TABLET 40 MG PO (17:21)
[2018-06-16] MEDS: ASPIRIN EC 81 MG TABLET PO (17:21)
--- NOTE | 2018-06-16 18:30 | PC.NURSE ---
1740: Gave clonidine early with the other 1700 meds, at patient's request (he always takes his evening meds together), okay by CASSI Maloney.
[2018-06-16 18:41] LABS: Magnesium 1.7 mg/dL (1.6-2.3)
--- NOTE | 2018-06-16 20:15 | PC.NURSE ---
Addendum entered by Amara Mobley R.N. 06/17/18 00:24: Awake, alert, appropriate mentation and conversation. Denies chest pain. Slight dyspnea at rest. Tele in place. BL calf scd's in place. States prepared to sleep through the night. Vital signs taken, urinal available. No concerns or complaints verbalized. Original Note: Addendum entered by Amara Mobley R.N. 06/16/18 21:41: Has denied chest pain all evening. Resting quietly in bed. Urinal use. Original Note: Per WARP KNITTER HELPER, Carin, pt with frequent pvc's per tele @ beginning of this shift. Dr. Argueta in with pt at this time and was made aware by this sheet writer. Pt has denied chest pain all evening. Resting quietly in bed with BL scd's in place.
[2018-06-17] VITALS (11 sets, daily range): BP systolic 135–162; BP diastolic 83–100; PULSE 90–98; RESP 16–18; TEMP 36.4–36.6; O2SAT 95–99
[2018-06-17] MEDS: SODIUM CHLORIDE 0.9% FLUSH 10 ML IV ×2 (08:36→20:19)
[2018-06-17] MEDS: METFORMIN HCL 500 MG TABLET 1000 MG PO ×2 (08:37→17:28)
[2018-06-17] MEDS: dilTIAZem CD 240 MG CAP PO (08:37)
[2018-06-17] MEDS: CHLORTHALIDONE 25 MG TABLET PO (08:37)
[2018-06-17] MEDS: LORATADINE 10 MG TABLET PO (08:37)
[2018-06-17] MEDS: SITAGLIPTIN 50 MG TABLET 100 MG PO (08:37)
[2018-06-17] MEDS: cloNIDine 0.1 MG TABLET 0.2 MG PO ×2 (08:38→17:28)
[2018-06-17] MEDS: HEPARIN 5,000 UNIT/ML VIAL 5000 UNIT SUBCUT ×2 (08:38→20:18)
[2018-06-17] MEDS: SODIUM CHLORIDE 0.9% 1,000 ML 100 ML IV (09:19)
--- NOTE | 2018-06-17 10:40 | PC.NURSE ---
Addendum entered by Joan Javed R.N. 06/17/18 14:56: CARDIAC/MS - pt completed stress test, in and pt ambul w/fww into hallway, did have elev hr 120-135 while mobilizing with some incr sob, [facility] notified to monitor during walk, ret to chair, hr decr quickly to 102, new med ordered and started 25mg po metoprolol w/hr 102-107. Original Note: AM NOTE - alert, no complaint chest pain, states sob w/activity bs clear, ra 96%, 1-2+ pedal edema, voiding clear yellow urine, no nausea, npo status this am for part 2 stress test, hr reg 96, per icu tele incr to 120 briefly when pt was up to dangle position to void, ret to 90's, nucl med in this am, icu notified and taken via wc for test.
--- NOTE | 2018-06-17 14:19 | PM.PN.1 ---
Subjective Date Patient Seen: 06/17/18 Interval history: The patient had 2nd phase of his stress test today. Results called in indicate a small focal inferior distal defect while at rest. In conversation with Cardiology this does not require immediate intervention. Patient will have an outpatient cardiology evaluation for further recommendations. He has not been very active today. However when he stands up or moves his heart rate still goes to 120. He is not short of breath. Patient has previously been managed with Cardizem for his blood pressure. This does not appear to be improving his heart rate. The patient will be started on metoprolol. The Cardizem will be discontinued. Once his heart rate is controlled and he is no longer short of breath he will be discharged home. Exam Vital Signs (past 8 hours): - 06/17/18 07:53 06/17/18 10:00 06/17/18 10:27 Temperature 97.6 F Pulse Rate 97 H Respiratory Rate 16 Blood Pressure 157/100 H Pulse Oximetry 98 98 96 06/17/18 11:20 Temperature 97.5 F L Pulse Rate 98 H Respiratory Rate 16 Blood Pressure 153/98 H Pulse Oximetry 98 Oxygen Delivery Method Room Air Oxygen Flow Rate 0 Narrative Exam Narrative: Pleasant gentleman in no acute distress Lungs clear to auscultation Cardiac exam: Tachycardic, regular rate and rhythm normal S1 and S2 Abdomen: Obese soft and nontender Extremity: No edema Objective Labs Result Diagrams: 06/16/18 05:38 06/16/18 05:38 Labs: Laboratory Results - last 24 hr 06/16/18 17:46 Magnesium 1.7 Assessment & Plan (1) Tachycardia: Problem details: Tachycardia persists. Will discontinue Cardizem, start metoprolol 50 b.i.d.. Patient will ambulate and will adjust medication to control his heart rate. Current visit: Yes Status: Acute (2) Unstable angina: Problem details: Weight resting study tomorrow. The patient gets shortness of breath with exertion will treat with nitrates stress test results received. At this point the patient needs risk factor modification. Will continue to control his blood pressure, hyperlipidemia, and diabetes. Patient will have referral to outpatient cardiology for further evaluation. Current visit: Yes Status: Acute (3) Dyspnea on exertion: Problem details: Will continue to follow Will Hep-Lock IV fluids. Current visit: Yes Status: Acute (4) Hypertension: Problem details: Discontinue Cardizem, start metoprolol, resume lisinopril at discharge. Current visit: Yes Status: Acute (5) Type 2 diabetes mellitus: Problem details: Continue his usual diabetic regimen Current visit: Yes Status: Acute (6) Chronic renal insufficiency: Current visit: Yes Status: Acute (7) Hyperlipidemia: Current visit: Yes Status: Acute Quality VTE Deep Vein Thrombosis/Pulmonary Embolism Present on Admission: No
[2018-06-17] MEDS: METOPROLOL ER 50 MG TABLET PO ×2 (14:52→20:18)
--- NOTE | 2018-06-17 15:30 | DI.NM.S_ITS ---
DATE OF SERVICE: 06/16/2018 ORDERING PHYSICIAN: Dr. Argueta PROCEDURE: Nuclear cardiac stress study. INDICATIONS: Mr. Reese is a 67-year-old gentleman with no past cardiac history admittedly symptoms of exercise intolerance with exertional dyspnea. Nuclear cardiac stress study is performed for evaluation. STRESS TEST: Patient was not exercised on a treadmill because of gait instability. A pharmacologic stress study was performed with handgrip low-level exercise. He received 25.9 of technetium 99 9 Myoview following pharmacologic stress. He returned the following day on 06/17/2018 for the resting study receiving an additional 26.3 mCi. Patient's baseline EKG shows diffuse low-voltage, likely related to the patient's size. There are no Q waves or diagnostic ST-segment abnormalities. Following pharmacologic stress, no significant EKG changes noted. The patient did have symptoms of dyspnea with the pharmacologic stress no complaints of agile anginal chest discomfort. FINDINGS: Raw Data: Raw data images demonstrate prominent hepatic uptake with otherwise no significant artifact or interference. Quantitative Gated SPECT Imaging: Gated exam shows a normal left ventricle chamber size with an end-diastolic volume of 102 cc . Overall estimated ejection fraction 75%. No regional wall motion abnormalities identify. Quantitative Perfusion SPECT Imaging: Myocardial perfusion imaging in stress and resting examination demonstrate moderate diaphragmatic attenuation mostly resolved with prone imaging. The resting images suggest a small area of distal inferior apical region with improved myocardial perfusion that may represent a small region of distal inferior wall ischemia. Clinical correlation suggested. IMPRESSION: Probable abnormal nuclear cardiac stress study. 1. No diagnostic EKG changes with pharmacologic stress. 2. Normal left ventricular chamber size and systolic function. 3. Subtle area of reversible myocardial perfusion involving the distal inferior wall suggesting the possibility of a small region of ischemia. DISCUSSION: I spoke with Dr. Argueta regarding these results. It's uncertain if the patient's symptoms of exertional dyspnea relate to this. We can assume he has underlying ischemic heart disease given his risk factors. If further investigation is needed for his exertional dyspnea, I recommend referral to outpatient cardiac evaluation. Kwan Reese - JUDIT/gabi/ doc#: [id number]/job#: [id number] dd: 06/17/2018 13:24:00 dt: 06/17/2018 15:12:00 DICTATING MD/COPIES TO: Suman Monte MD COPIES MNE: CASTRO
[2018-06-17] MEDS: ATORVASTATIN 20 MG TABLET 40 MG PO (17:28)
[2018-06-17] MEDS: ASPIRIN EC 81 MG TABLET PO (17:28)
--- NOTE | 2018-06-17 17:55 | PC.NURSE ---
Addendum entered by Amara Mobley R.N. 06/17/18 20:12: Pt desires to ambulate in hallway. Pulse oximeter placed on pt's finger for ambulation. 02 sats sustained 97-99% although pt does admit to dyspnea with exertion. Is able to converse with this keno writer during ambulation. HR highest 117 and recovers to 103 with rest. Pt ambulatory around [facility] stopping to rest in wheelchair x 1. Now resting quietly in room sitting on side of bed. Original Note: Addendum entered by Amara Mobley R.N. 06/17/18 18:03: Pt states prefers clonidine with evening meal as per home routine. This request was accommodated. Original Note: Pt up in recliner @ beginning of shift. Denies chest pain and states less dyspnea @ rest today. States dyspnea more pronounced with ambulation in hallway earlier today. Tele in place. 2+ pitting edema to feet BL. Apical heartrate with occasional irregular beats. Spouse is present, attentive and involved in pt's care. Appropriate mentation and conversation.
[2018-06-18] VITALS (13 sets, daily range): BP systolic 136–177; BP diastolic 80–101; PULSE 88–120; RESP 16–20; TEMP 36.3–37; O2SAT 95–98
[2018-06-18 06:13] LABS: Add Manual Diff / Slide Review NO; BUN Creatinine Ratio 22.1 (6-22); Basophils Percent Auto 0.7 % (0-2); Blood Urea Nitrogen 31 mg/dL (9-20); Calcium 8.8 mg/dL (8.4-10.2); Carbon Dioxide 24 mmol/L (22-32); Chloride 101 mmol/L (98-107); Eosinophils Percent Auto 1.5 % (2-4); Estimated Glomerular Filt Rate 50.5 mL/min (>60); Glucose 131 mg/dL (80-110); HEMOLYSIS < 15 (0-50); Hematocrit 35.4 % (41-53); Hemoglobin 11.9 g/dL (13.5-17.5); Lymphocytes Percent Auto 14.7 % (25-40); Mean Corpuscular HGB Conc 33.7 % (30-36); Mean Corpuscular Hemoglobin 24.7 PG (26-34); Mean Corpuscular Volume 73.4 fL (80-100); Monocytes Percent Auto 7.2 % (3-14); Neutrophils Absolute Auto 7000 /uL (3000-5900); Neutrophils Percent Auto 75.9 % (50-75); Platelet Count 254 X10^3/uL (150-400); Potassium 4.5 mmol/L (3.4-5.1); Red Blood Cell Count 4.83 X10^6/uL (4.5-5.9); Red Cell Distribution Width 17.1 % (11.6-14.8); Sodium 136 mmol/L (137-145); White Blood Cell Count 9.2 X10^3/uL (4.5-11.0)
[2018-06-18 06:48] LABS: B Type Natriuretic Peptide 72.4 (<100)
--- NOTE | 2018-06-18 07:30 | PC.NURSE ---
Pt had some incontinent diarrhea last night. will continue to monitor. call light in reach.
--- NOTE | 2018-06-18 07:55 | PC.NURSE ---
Addendum entered by Joan Javed R.N. 06/18/18 12:11: CARDIAC - after discussion HR w/mobilization and stair practice with icu, HR up to 120's, pt did experience incr sob, sat in chair and rested prior to taking wc back to room, HR returned low 100's at rest, 02 sat remained 95% Ra, discussed w/ and new order rec'd, addl 25mg po metoprolol given. Original Note: AM NOTE - alert, no complaint chest discomfort or sob at rest, discussed episodes x2 yest katelin and overnight loose stools, bt are hypo, no nausea or cramping, pt asking to ambul this am before breakfast, at rest hr irreg 84, up dangle w/o dizziness and then ambul w/standby assist around n wing loop, icu notified prior to mobilization, hr elev to approx 106-110 during exhertion w/some incr sob during activity, ret to chair and hr ret to mid 80's, bs clear, ra 95%.
[2018-06-18] MEDS: METFORMIN HCL 500 MG TABLET 1000 MG PO ×2 (08:36→17:33)
[2018-06-18] MEDS: cloNIDine 0.1 MG TABLET 0.2 MG PO ×2 (08:37→21:27)
[2018-06-18] MEDS: HEPARIN 5,000 UNIT/ML VIAL 5000 UNIT SUBCUT ×2 (08:37→21:27)
[2018-06-18] MEDS: CHLORTHALIDONE 25 MG TABLET PO (08:37)
[2018-06-18] MEDS: SODIUM CHLORIDE 0.9% FLUSH 10 ML IV ×2 (08:38→23:03)
[2018-06-18] MEDS: SITAGLIPTIN 50 MG TABLET 100 MG PO (08:38)
[2018-06-18] MEDS: LORATADINE 10 MG TABLET PO (08:38)
[2018-06-18] MEDS: METOPROLOL ER 50 MG TABLET PO (08:38)
[2018-06-18] MEDS: METOPROLOL ER 25 MG TABLET PO (11:43)
--- NOTE | 2018-06-18 13:19 | PM.PN.1 ---
Subjective Date Patient Seen: 06/18/18 Interval history: He is seen today to follow up the cardiac ischemia. He continues to have moderate tachycardia particularly with exertion and becomes quite short of breath, beyond what the echocardiogram and CT scan of the chest would explain when walking up steps. He appears to be quite deconditioned. Metoprolol was started last night. The blood pressure is 177/88 and heart rate with walking in the hallway rises to 108, but when taking a step challenge goes up to the 140s. He has 14 steps at home to negotiate into his living quarters. The CBC and BMP are reassuring. Exam Vital Signs (past 8 hours): - 06/18/18 05:45 06/18/18 07:42 06/18/18 07:49 Temperature 98.4 F 98.6 F Pulse Rate 88 88 Respiratory Rate 18 18 Blood Pressure 177/88 H 152/101 H Pulse Oximetry 97 97 95 06/18/18 10:15 06/18/18 11:50 06/18/18 12:03 Temperature 97.3 F L Pulse Rate 120 H 92 H 93 H Respiratory Rate 18 Blood Pressure 136/91 H Pulse Oximetry 96 Oxygen Delivery Method Room Air Oxygen Flow Rate 0 Objective Labs Result Diagrams: 06/18/18 05:58 06/18/18 05:58 Labs: Laboratory Results - last 24 hr 06/18/18 06/18/18 05:58 05:58 WBC 9.2 RBC 4.83 Hgb 11.9 L Hct 35.4 L MCV 73.4 L MCH 24.7 L MCHC 33.7 RDW 17.1 H Plt Count 254 Neut % (Auto) 75.9 H Lymph % (Auto) 14.7 L [place] % (Auto) 7.2 Eos % (Auto) 1.5 L Baso % (Auto) 0.7 Neut # (Auto) 7000 H Sodium 136 L Potassium 4.5 Chloride 101 Carbon Dioxide 24 BUN 31 H Creatinine 1.40 H Estimated GFR 50.5 L BUN/Creatinine Ratio 22.1 H Glucose 131 H Calcium 8.8 B-Natriuretic Peptide 72.4 Assessment & Plan (1) Type 2 diabetes mellitus: Problem details: Continue his usual diabetic regimen Current visit: Yes Status: Acute Plan: Assessment/Plan Narrative: (1) Unstable angina: Problem details:. The ETT/cardiac scan shows a small area of ischemia, not amenable to intervention at this early stage. The diltiazem was stopped and metoprolol was started. The dose will need to be increased to 75 mg b.i.d.. Discharge will be planned for tomorrow after another step challenge. Continue daily aspirin and Lipitor. Current visit: Yes Status: Acute (2) Tachycardia: Problem details: Heart rate continues high with exertion and so metoprolol dose will be increased Current visit: Yes Status: Acute (3) Dyspnea on exertion: Problem details: Will continue to follow. The CT scan of the chest, the echocardiogram and the cardiac scan are all reviewed carefully. He appears to have a significant component of deconditioning. Current visit: Yes Status: Acute 4 - DM 2 - continue Metformin and Januvia. Follow blood sugars. Quality VTE Deep Vein Thrombosis/Pulmonary Embolism Present on Admission: No
[2018-06-18] MEDS: ATORVASTATIN 20 MG TABLET 40 MG PO (17:33)
[2018-06-18] MEDS: ASPIRIN EC 81 MG TABLET PO (17:33)
--- NOTE | 2018-06-18 18:49 | PC.NURSE ---
Addendum entered by Kaylee Mckinney R.N. 06/18/18 22:47: Pt had uneventful evening. Tele NSR/1st degree AV block per ICU staff. Amb w/staff on the stairs w/o incidence. Denies any discomfort. Call light w/in reach. Continue w/plan of care. Original Note: Pt up ad song in room. Denies any discomfort. HL RAC intact. SpO2 98% RA, lungs clear, Tele shows NSR/first degree AVblock per ICU staff. Call light w/in reach.
[2018-06-18] MEDS: METOPROLOL ER 25 MG TABLET 75 MG PO (21:28)
[2018-06-19 00:30] VITALS: O2SAT 97
[2018-06-19 04:11] VITALS: BP 153/94; PULSE 87; RESP 18; TEMP 36.7; O2SAT 97
--- NOTE | 2018-06-19 05:43 | PC.NURSE ---
Pt did the step challenge this morning. Pt took 15 steps and was SOB, HR 111-114.
[2018-06-19 07:35] VITALS: BP 174/97; PULSE 83; RESP 18; TEMP 36.3; O2SAT 98
[2018-06-19] MEDS: CHLORTHALIDONE 25 MG TABLET PO (08:14)
[2018-06-19] MEDS: METFORMIN HCL 500 MG TABLET 1000 MG PO (08:14)
[2018-06-19] MEDS: cloNIDine 0.1 MG TABLET 0.2 MG PO (08:14)
[2018-06-19] MEDS: HEPARIN 5,000 UNIT/ML VIAL 5000 UNIT SUBCUT (08:15)
[2018-06-19] MEDS: SITAGLIPTIN 50 MG TABLET 100 MG PO (08:16)
[2018-06-19] MEDS: LORATADINE 10 MG TABLET PO (08:16)
[2018-06-19] MEDS: SODIUM CHLORIDE 0.9% FLUSH 10 ML IV (08:16)
[2018-06-19] MEDS: METOPROLOL ER 25 MG TABLET 75 MG PO (08:16)
[2018-06-19 08:38] VITALS: O2SAT 96
--- NOTE | 2018-06-19 11:26 | PM.DS.1 ---
History of Present Illness Date Patient Seen: 06/19/18 Chief complaint: exertional sob Narrative: THIS IS A 67-YEAR-OLD MALE WITH NO PRIOR HISTORY OF HEART DISEASE. THE PATIENT HAS A HISTORY OF HIGH BLOOD PRESSURE, DIABETES, WELL OBSTRUCTIVE SLEEP APNEA. PATIENT PRESENTED TO THE HOSPITAL COMPLAINING OF WORSENING SHORTNESS OF BREATH AND DYSPNEA ON EXERTION. PATIENT STATED THAT FOR THE LAST FEW MONTHS HE HAS BEING GETTING SIGNIFICANTLY SHORT OF BREATH DOING ABLATION. THIS IS MADE BETTER BY SITTING DOWN AND REST FOR A WHILE. HE REPORTED HIS LEVEL OF ACTIVITY IS BEING MODERATE BEFORE THE ONSET OF HIS SYMPTOMS. HOWEVER NOW HE IS EFFECTIVE BECAUSE OF THE SHORTNESS OF BREATH HE EVER DENIED ANY ORTHOPNEA. HE ALSO DENIED ANY CHEST PALPITATIONS. HE HAS NOT BEEN TRAVELING OUTSIDE THE COUNTRY. HE DENIED ANY SICK CONTACTS. HE DENIES ANY FEVER OR CHILLS. NO COUGH. HE USED TO SMOKE ABOUT 1 PACK A DAY. HOWEVER HE QUITED IN 2000 SWELLING WERE REPORTED TO HIS LOWER EXTREMITIES. HOWEVER HE DENIED ANY RECENT WEIGHT LOSS OR WEIGHT GAIN. NO HEAT AND COLD INTOLERANCE. NO SKIN LESIONS FIGURED NO SKIN RASH. NO CALVES DISCOMFORT. NO TINGLING OR NUMBNESS TO EXTREMITIES. NO BLOOD IN THE URINE. NO BLOOD PER RECTUM. NO BLOOD IN HIS SPUTUM. NO NAUSEA, VOMITING, DIARRHEA OR CONSTIPATION. NO SYNCOPAL OR PRESYNCOPAL EPISODE. Discharge Providers Date of admission: 06/15/18 15:58 Consults: 06/15/18 15:25 Consult to Discharge Planning Routine Comment: Discharge provider: Selene Coronel MD Discharge Date: 06/19/18 Summary Hospital Course: (1) Type 2 diabetes mellitus: Problem details: Continue his usual diabetic regimen here and at home on discharge. Current visit: Yes Status: Acute Plan: Assessment/Plan Narrative: (1) Unstable angina: Problem details:. The ETT/cardiac scan shows a small area of ischemia, not amenable to intervention at this early stage. The diltiazem was stopped and metoprolol was started. The dose was increased to 75 mg b.i.d yesterday. Discharged today after another step challenge showed less tachycardia and dyspnea. Continue daily aspirin and Lipitor. Current visit: Yes Status: Acute (2) Tachycardia: Problem details: Heart rate continues high with exertion and so metoprolol dose was increased yesterday to good effect. Current visit: Yes Status: Acute (3) Dyspnea on exertion: Problem details: Will continue to follow. The CT scan of the chest, the echocardiogram and the cardiac scan are all reviewed carefully. He appears to have a significant component of deconditioning. Current visit: Yes Status: Acute 4 - DM 2 - continue Metformin and Januvia. Follow blood sugars at home as before. He will follow up with Dr. Murillo at the [facility] in [place]. Exam Vital Signs (past 8 hours): - 06/19/18 04:11 06/19/18 07:35 06/19/18 08:38 Temperature 98.1 F 97.4 F L Pulse Rate 87 83 Respiratory Rate 18 18 Blood Pressure 153/94 H 174/97 H Pulse Oximetry 97 98 96 Oxygen Delivery Method Room Air Oxygen Flow Rate 0 Narrative Exam Narrative: Alert and oriented x3. No apparent distress. Heart regular rate and rhythm without murmur. Lungs clear to auscultation bilaterally. Extremities no ankle edema. He looks much better with both skin coloration and voice volume. Objective Labs Result Diagrams: 06/18/18 05:58 06/18/18 05:58 Discharge Plan Discharge Plan Patient Disposition: Home Discharge comment: Follow up with your [facility] clinic doctor for a cardiology referral EDI. Discharge Med Rec/Prescriptions Prescriptions: New nitroglycerin [Nitrostat] 0.4 mg Tablet, Sublingual 0.4 mg Sublingual [id number] PRN (Reason: Chest Pain) Qty: 25 RF: 0 metoprolol succinate 25 mg Tablet Extended Release 24 Hr 75 mg PO BID Qty: 60 RF: 0 Continue cetirizine 10 MG tablet 10 mg PO DAILY Qty: 0 RF: 0 metformin [Glucophage] 500 MG tablet 1,000 mg PO BID Qty: 0 RF: 0 lisinopril 40 MG tablet 40 mg PO DAILY Qty: 0 RF: 0 clonidine HCl 0.2 MG tablet 0.2 mg PO BID Qty: 0 RF: 0 aspirin 81 mg Tablet,Delayed Release (Dr/Ec) 81 mg PO QPM RF: 0 atorvastatin [Lipitor] 40 mg Tablet 40 mg PO QPM RF: 0 chlorthalidone 25 mg Tablet 25 mg PO DAILY RF: 0 ergocalciferol (vitamin D2) [Vitamin D2] 50,000 unit Capsule 50,000 unit PO DIRECTED RF: 0 fluticasone [Flonase Allergy Relief] 50 mcg/actuation [place],Suspension 2 spray INTRANASAL DAILY RF: 0 sitagliptin [Januvia] 100 mg Tablet 100 mg PO DAILY RF: 0 docosahexanoic acid-epa [Fish Oil] 120-180 mg Capsule 1 cap PO QPM RF: 0 docosahexanoic acid-epa [Fish Oil] 120-180 mg Capsule 2 cap PO QAM RF: 0 Discontinued diltiazem HCl [Cardizem LA] 240 MG tablet extended release 24 hr 240 mg PO DAILY Qty: 0 RF: 0 Provider Discharge Instructions Diet: Diet as Tolerated Visit Report/Discharge Packet Instructions: DI for Acute Coronary Syndrome, Coronary Artery Disease, Angina, DI for Coronary Artery Disease, Nitroglycerin Sublingual, Metoprolol Visit Report Forms: Stroke Signs & Symptoms Discharge Data Attending Provider: Kinga Kelley Admit Date/Time: 06/15/18 15:58 Discharges patient from system. Discharge Date/Time: 06/19/18 12:22 Quality VTE Deep Vein Thrombosis/Pulmonary Embolism Present on Admission: No
[2018-06-19 11:32] VITALS: BP 145/91; PULSE 83; RESP 16; TEMP 36.4; O2SAT 97
--- NOTE | 2018-06-19 11:55 | CM.DPC ---
DCP Discharge Home Per MD, pt is medically stable to d/c home today with no identified barriers to discharge. Per RN, pt's family to provide transport. Plan: Patient to d/c home today via spouse POV and no SW needs at this time. JAZMINE Zhang
--- NOTE | 2018-06-19 12:20 | PC.NURSE ---
Day shift: Pt left w/ spouse in WC w/ this writer technical publications at approx 1215. Paperwork signed and all questions answered. Pt has MD hood and all personal belongings. They are travelling back home to [place].
== END 2018-06-19 12:22 | disposition home or self-care (01) | DRG 311 ==
LOC: ED 15:20 → AC 16:53
PROVIDERS: Internal Medicine; Admitting Provider Hospitalist; Emergency Provider Emergency Medicine; Visit Provider Hospitalist
DX: I20.0 Unstable angina (principal); I12.9 Hypertensive chronic kidney disease with stage 1 through stage 4 chronic kidney disease, or unspecified chronic kidney disease; N18.9 Chronic kidney disease, unspecified; R00.0 Tachycardia, unspecified; G47.33 Obstructive sleep apnea (adult) (pediatric); E11.9 Type 2 diabetes mellitus without complications; Z87.891 Personal history of nicotine dependence; E66.9 Obesity, unspecified; Z68.38 Body mass index [BMI] 38.0-38.9, adult; R06.09 Other forms of dyspnea
CPT/HCPCS: 36415; 36591; 71045; 71275; 78452; 80048; 80053; 80061; 81003; 81015; 82550; 82962; 83540; 83550; 83735; 83880; 84484; 85025; 85610; 85730; 93005; 93016; 93017; 93018; 93306; 94640; 94760; 94762; 96374; 96375; 99283; 99285; A9502; J1200; J1644; J2785; J2930; J7613; Q9967

== ENCOUNTER 2018-07-13 16:58 | Emergency (ER) | payer MEDICARE, OTHER, SELFPAY ==
[2018-06-15 17:24] VITALS: BMI 38.0
[2018-07-13 17:02] VITALS: BP 183/101; PULSE 89; RESP 18; TEMP 36.7; O2SAT 100
[2018-07-13 17:32] LABS: Bilirubin Urine UA 1+ (NEGATIVE); Color Urine UA RED; Glucose Urine UA NEGATIVE (Normal); Ketones Urine UA TRACE (NEGATIVE); Leukocyte Esterase Urine UA TRACE (NEGATIVE); Nitrite Urine UA POSITIVE (Negative); Occult Blood Urine UA 3+ (Negative); Protein Urine UA 3+ (Negative); Specific Gravity Urine UA 1.025 (1.000-1.035); pH Urine UA 6.5 (4.5-8.0)
[2018-07-13 17:43] LABS: Appearance Urine UA OTHER; RBC Urine >100/HPF (0-5/HPF)
[2018-07-13] MEDS: SODIUM CHLORIDE 0.9% 1,000 ML 1000 ML IV (17:43)
[2018-07-13 17:44] VITALS: BP 159/81; PULSE 80; RESP 14; O2SAT 98
[2018-07-13 17:44] LABS: Amorphous Sediment Urine 3+; Bacteria Urine Moderate (10-30); Mucus Urine 1+ (Negative); Squamous Epithelial Cell Urine 0-1 /HPF; WBC Urine 5-10/HPF (0-5/HPF)
[2018-07-13 17:45] LABS: Culture Indicated Urine Specimen Cultured; Ictotest Urine Negative (Negative)
--- NOTE | 2018-07-13 17:46 | PC.NURSE ---
Pt denies h/o CHF. Is on statin for years. Denies muscle aches / pains. Denies recent fall / injury / immobility.
--- NOTE | 2018-07-13 17:51 | ED.MALEGU ---
HPI - Male Genitourinary General Chief complaint: Urogenital-Male Stated complaint: thinks he has a UTI Time Seen by Provider: 07/13/18 17:36 Source: patient and family Mode of arrival: ambulatory Limitations: no limitations History of Present Illness HPI Narrative: Patient is a 67-year-old male nonsmoker the presents with a chief complaint of ?I think I have a urinary tract infection.? He states he trouble urinating after 8:00 a.m. this morning, and when he does urinate is full of blood clots and dark. He denies any abdominal pain, chest pain, abnormal shortness of breath, fever, nausea vomiting diarrhea or flank pain. He states his urine is very dark and thick. He has a history of prostate cancer. Related Data Home Medications Medication Instructions Recorded Confirmed cetirizine 10 mg PO DAILY #0 03/05/12 06/15/18 clonidine HCl 0.2 mg PO BID #0 03/05/12 06/15/18 lisinopril 40 mg PO DAILY #0 03/05/12 06/15/18 metformin [Glucophage] 1,000 mg PO BID #0 03/05/12 06/15/18 aspirin 81 mg PO QPM 06/15/18 06/15/18 atorvastatin [Lipitor] 40 mg PO QPM 06/15/18 06/15/18 chlorthalidone 25 mg PO DAILY 06/15/18 06/15/18 docosahexanoic acid-epa [Fish Oil] 1 cap PO QPM 06/15/18 06/15/18 docosahexanoic acid-epa [Fish Oil] 2 cap PO QAM 06/15/18 06/15/18 ergocalciferol (vitamin D2) 50,000 unit PO DIRECTED 06/15/18 06/15/18 [Vitamin D2] fluticasone [Flonase Allergy 2 spray INTRANASAL DAILY 06/15/18 06/15/18 Relief] sitagliptin [Januvia] 100 mg PO DAILY 06/15/18 06/15/18 Previous Rx's Medication Instructions Recorded metoprolol succinate 75 mg PO BID #60 tab 06/19/18 nitroglycerin [Nitrostat] 0.4 mg SUBLINGUAL [id number] PRN #25 06/19/18 tab levofloxacin 500 mg PO DAILY #10 tab 07/13/18 Allergies Allergy/AdvReac Type Severity Reaction Status Date / Time Iodinated Contrast- Oral and Allergy Intermediate Difficulty Verified 07/13/18 17:05 IV Dye Swallowing Review of Systems Review of Systems GENERAL: This is a well-nourished, well-developed patient, in mild distress. HEAD: Atraumatic. Normocephalic. No temporal or scalp tenderness. EYES: Pupils equal round and reactive. Extraocular motions intact. No scleral icterus. No injection or drainage. ENT: Nose without bleeding, purulent drainage or septal hematoma. Throat without erythema, tonsillar hypertrophy or exudate. Uvula midline. Airway patent. NECK: Trachea midline. No JVD or lymphadenopathy. Supple, nontender, no meningeal signs. CARDIOVASCULAR: Regular rate and rhythm without murmurs, gallops, or rubs. RESPIRATORY: Clear to auscultation. Breath sounds equal bilaterally. No wheezes, rales, or rhonchi. GASTROINTESTINAL: See HPI EXTREMITIES: No clubbing, cyanosis, or edema. No joint tenderness, effusion, or edema noted. BACK: Nontender without deformity or crepitance. No flank tenderness. NEURO: AOx3. SKIN: No rash or erythema. [facility] Medical History Diabetes (Acute) Hyperlipidemia (Acute) Hypertension (Acute) Social History household members: spouse Smoking Status: Never smoker Exam Narrative Exam Narrative: GENERAL: This is a well-nourished, well-developed patient, in no acute distress HEAD: Atraumatic. Normocephalic. No temporal or scalp tenderness. EYES: Pupils equal round and reactive. Extraocular motions intact. No scleral icterus. No injection or drainage. ENT: Nose without bleeding, purulent drainage or septal hematoma. Throat without erythema, tonsillar hypertrophy or exudate. Uvula midline. Airway patent. NECK: Trachea midline. No JVD or lymphadenopathy. Supple, nontender, no meningeal signs. CARDIOVASCULAR: Regular rate and rhythm without murmurs, gallops, or rubs. RESPIRATORY: Clear to auscultation. Breath sounds equal bilaterally. No wheezes, rales, or rhonchi. No cough. No increased respiratory effort. GASTROINTESTINAL: Abdomen soft, non-tender, nondistended. No hepato-splenomegaly, or palpable masses. No guarding. EXTREMITIES: No clubbing, cyanosis, or edema. No joint tenderness, effusion, or edema noted. BACK: Nontender without deformity or crepitance. No flank tenderness. : Doshi in place, draining red urine with sediment. NEURO: AOx3. SKIN: No rash or erythema. Initial Vital Signs Initial Vital Signs: Vital Signs Temperature 98.1 F 07/13/18 17:02 Pulse Rate 89 07/13/18 17:02 Respiratory Rate 18 07/13/18 17:02 Blood Pressure 183/101 H 07/13/18 17:02 Pulse Oximetry 100 07/13/18 17:02 Course Course Narrative: I met with the patient his several times throughout his stay in the emergency department. Upon receipt of his CT results, I spoke at length regarding the results as well as a possible gravity of the situation. I spoke regarding the possibility of a carcinoma. I discussed at length that he will hear from [facility] tomorrow, and discussed that he might have an appointment on Thursday at about noon. Prior to ordering the CT with contrast, checked the patient due to his allergy any well managed a CT with contrast during his last stay for a possible PE with premedication. Patient was signed out to Dr Eddy at 23:30 with transport pending, having received oxybutynin, Percocet, Zofran and IV fluids. CBI disconnected due to pain and recommendations of Dr. Clark Orders Ordered: ED Orders 07/13/18 17:21 Ictotest Urine Stat Urinalysis and Microscopic Stat Urine Culture Stat 07/13/18 18:29 Complete Blood Count AUTO DIFF Stat Comprehensive Metabolic Panel Stat Lipase Stat Partial Thromboplastin Time Stat Prothrombin Time INR Stat Troponin & CK Cardiac Panel Stat 07/13/18 19:25 CT kidney ureter bladder (KUB) Stat 07/13/18 21:11 CT abdomen pelvis w con Stat Belladonna Alkaloids/Opium (B&O Supprettes) 1 each MO Q4HR PRN PRN Reason: Spasms Sodium Chloride (Normal Saline 0.9%) 1,000 mls @ 150 mls/hr IV CONT JUAN ANTONIO Last Admin: 07/13/18 23:24 Dose: 150 mls/hr Oxybutynin (Ditropan) 10 mg PO DAILY JUAN ANTONIO Discontinued Medications Amoxicillin (Amoxicillin (250 Mg/5 Ml) Prepack) 1 bottle MISC SEEINSTR ONE Stop: 07/13/18 21:23 Last Admin: 07/13/18 21:38 Dose: Diphenhydramine HCl (Benadryl) 50 mg IV NOW ONE Stop: 07/13/18 21:03 Last Admin: 07/13/18 21:18 Dose: 50 mg Sodium Chloride (Normal Saline 0.9%) 1,000 mls @ 1,000 mls/hr IV BOLUS ONE Stop: 07/13/18 18:24 Last Infusion: 07/13/18 18:55 Dose: 0 mls/hr Admin: 07/13/18 17:43 Dose: 1,000 mls/hr Famotidine (Pepcid) 20 mg in 50 mls @ 200 mls/hr IV NOW ONE Stop: 07/13/18 21:18 Last Infusion: 07/13/18 21:30 Dose: 0 mls/hr Admin: 07/13/18 21:17 Dose: 200 mls/hr Levofloxacin (Levaquin) 500 mg PO NOW ONE Stop: 07/13/18 22:01 Last Admin: 07/13/18 23:16 Dose: 500 mg Methylprednisolone (Solu-Medrol 125 Mg Vial) 125 mg IV NOW ONE Stop: 07/13/18 21:03 Last Admin: 07/13/18 21:17 Dose: 125 mg Ondansetron HCl (Zofran Odt) 4 mg PO NOW ONE Stop: 07/13/18 23:19 Last Admin: 07/13/18 23:23 Dose: 4 mg Oxycodone/Acetaminophen (Percocet 5/325) 2 tab PO NOW ONE Stop: 07/13/18 23:19 Last Admin: 07/13/18 23:23 Dose: 2 tab Phenazopyridine HCl (Pyridium) 200 mg PO NOW ONE Stop: 07/13/18 22:56 Consultations Consultation #1: I spoke with the radiologist regarding the patient's CT scan results. Time: 20:00 Consultation #2: I spoke with Nephrology from [facility], suggested that I speak with Urology. Consultation #3: I spoke with Dr Clark, urology at [facility]. He was able to get contact information for the patient, and states he will likely have an appointment with him at about noon on Thursday. He suggested doing [address] flushing, or hand flushing of the fully to help expedite removal of the clots. He requested a CT with contrast prior to the patient's appointment, which was ordered with premedications due to the patient's allergy. He also suggested treating the infection in his urine at this point due to the nitrates in his urine. Vital Signs - 8 hr 07/13/18 17:02 07/13/18 17:44 07/13/18 21:45 Temperature 98.1 F Pulse Rate 89 80 Respiratory Rate 18 14 Blood Pressure 183/101 H Blood Pressure [Left Arm] 159/81 H 156/106 H Pulse Oximetry 100 98 99 MDM - Male Genitourinary Lab Data Result diagrams: 07/13/18 18:29 07/13/18 18:29 Lab Results 07/13/18 07/13/18 07/13/18 Range/Units 17:21 17:21 18:29 WBC 9.8 (4.5-11.0) X10^3/uL RBC 4.55 (4.5-5.9) X10^6/uL Hgb 11.1 L (13.5-17.5) g/dL Hct 33.5 L (41-53) % MCV 73.6 L (80-100) fL MCH 24.4 L (26-34) PG MCHC 33.2 (30-36) % RDW 16.9 H (11.6-14.8) % Plt Count 224 (150-400) X10^3/uL Neut % (Auto) 83.5 H (50-75) % Lymph % (Auto) 9.1 L (25-40) % [place] % (Auto) 5.7 (3-14) % Eos % (Auto) 0.9 L (2-4) % Baso % (Auto) 0.8 (0-2) % Neut # (Auto) 8200 H (2005-1893) /uL PT (10.1-12.7) SECONDS INR (0.9-1.3) APTT (26.4-36.2) SECONDS Sodium (137-145) mmol/L Potassium (3.4-5.1) mmol/L Chloride (98-107) mmol/L Carbon Dioxide (22-32) mmol/L BUN (9-20) mg/dL Creatinine (0.66-1.25) mg/dL Estimated GFR (>60) mL/min BUN/Creatinine Ratio (6-22) Glucose (80-110) mg/dL Calcium (8.4-10.2) mg/dL Total Bilirubin (0.2-1.3) mg/dL AST (17-59) IU/L ALT (21-72) IU/L Alkaline Phosphatase (38-126) U/L Total Creatine Kinase (55-170) U/L CK-MB (CK-2) CK-MB (CK-2) Rel Index Troponin I (0.01-0.034) ng/mL Total Protein (6.3-8.2) g/dL Albumin (3.5-5.0) g/dL Globulin (1.7-4.1) g/dL Albumin/Globulin Ratio (1.0-2.8) Lipase (23-300) U/L Urine Color Red Urine Appearance Other Urine pH 6.5 (4.5-8.0) Ur Specific [place] 1.025 (1.000-1.035) Urine Protein 3+ H (Negative) Urine Glucose (UA) Negative (Normal) g/dL Urine Ketones Trace H (NEGATIVE) Urine Occult Blood 3+ H (Negative) Urine Nitrate Positive (Negative) Urine Bilirubin 1+ H (NEGATIVE) Urine Ictotest Negative (Negative) Urine Urobilinogen 1.0 (0.2) E.U./dL Ur Leukocyte Esterase Trace H (NEGATIVE) Urine RBC >100/hpf (0-5/HPF) Urine WBC 5-10/hpf H (0-5/HPF) Ur Squamous Epith Cells 0-1 /hpf Amorphous Sediment 3+ Urine Bacteria Moderate (10-30) H (None) Urine Mucus 1+ H (Negative) Ur Culture Indicated? Specimen cultured Micro UA Comment Not Reportable 07/13/18 07/13/18 07/13/18 Range/Units 18:29 18:29 18:29 WBC (4.5-11.0) X10^3/uL RBC (4.5-5.9) X10^6/uL Hgb (13.5-17.5) g/dL Hct (41-53) % MCV (80-100) fL MCH (26-34) PG MCHC (30-36) % RDW (11.6-14.8) % Plt Count (150-400) X10^3/uL Neut % (Auto) (50-75) % Lymph % (Auto) (25-40) % [place] % (Auto) (3-14) % Eos % (Auto) (2-4) % Baso % (Auto) (0-2) % Neut # (Auto) (8846-8018) /uL PT 13.1 H (10.1-12.7) SECONDS INR 1.1 (0.9-1.3) APTT 28 D (26.4-36.2) SECONDS Sodium 138 (137-145) mmol/L Potassium 5.2 H (3.4-5.1) mmol/L Chloride 99 (98-107) mmol/L Carbon Dioxide 28 (22-32) mmol/L BUN 28 H (9-20) mg/dL Creatinine 1.50 H (0.66-1.25) mg/dL Estimated GFR 46.7 L (>60) mL/min BUN/Creatinine Ratio 18.7 (6-22) Glucose 152 H (80-110) mg/dL Calcium 8.7 (8.4-10.2) mg/dL Total Bilirubin 0.6 (0.2-1.3) mg/dL AST 18 (17-59) IU/L ALT 20 L (21-72) IU/L Alkaline Phosphatase 93 (38-126) U/L Total Creatine Kinase 49 L (55-170) U/L CK-MB (CK-2) TNP CK-MB (CK-2) Rel Index TNP Troponin I < 0.012 (0.01-0.034) ng/mL Total Protein 6.6 (6.3-8.2) g/dL Albumin 3.8 (3.5-5.0) g/dL Globulin 2.8 (1.7-4.1) g/dL Albumin/Globulin Ratio 1.4 (1.0-2.8) Lipase 90 (23-300) U/L Urine Color Urine Appearance Urine pH (4.5-8.0) Ur Specific [place] (1.000-1.035) Urine Protein (Negative) Urine Glucose (UA) (Normal) g/dL Urine Ketones (NEGATIVE) Urine Occult Blood (Negative) Urine Nitrate (Negative) Urine Bilirubin (NEGATIVE) Urine Ictotest (Negative) Urine Urobilinogen (0.2) E.U./dL Ur Leukocyte Esterase (NEGATIVE) Urine RBC (0-5/HPF) Urine WBC (0-5/HPF) Ur Squamous Epith Cells Amorphous Sediment Urine Bacteria (None) Urine Mucus (Negative) Ur Culture Indicated? Micro UA Comment Imaging Data CT KUB: Radiologist's impression: Launch Image View Report History [address] [address] [address] Scan Report Signed Patient: Kwan Reese MR#: [id number] : 1950 Acct:[id number] Age/Sex: 67 / M Date of Service: 07/13/18 Loc: ED Accession Number: [id number] Procedure: CT kidney ureter bladder (KUB) Ordering Provider: Federica Monteiro BED RUBBER-BC PROCEDURE: CT KIDNEY URETER BLADDER (KUB) INDICATIONS: decreased UOP, bloody urine TECHNIQUE: Noncontrast 5 mm thick sections acquired from the diaphragms to the symphysis. 5 mm thick coronal and sagittal reformats were then performed. For radiation dose reduction, the following was used: automated exposure control, adjustment of mA and/or kV according to patient size. COMPARISON: [facility], CT, CT CAMERON, 02/20/2014, 10:17. [facility], CT, CT ANGIO CHEST PE PROTOCOL, 06/15/2018, 12:40. FINDINGS: Image quality: Excellent. Lung bases: Lung bases are clear. Heart size is normal. Urinary system: Markedly enlarged right kidney is noted with suggestion of solid appearing mass replacing the right renal tissue, and measures up to 9.3 x 11.1 x 15.5 cm in its largest transverse, AP, and craniocaudal dimensions. Finding is highly suspicious for renal cell carcinoma. Left kidney is normal in size. No left-sided hydronephrosis. Nonspecific mild left perinephric fat stranding is seen. No left-sided renal stone. Both ureters appear non-dilated throughout their expected courses. Urinary bladder is partially distended and shows diffuse bladder wall thickening. There is suggestion of a Doshi catheter within bladder lumen. Hyperdensity within bladder lumen is noted suggestive of blood clots. No gross calcified bladder stone. Other solid organs: Liver is normal in size. 2.3 x 3.4 cm oval hypodensity in right hepatic dome is seen and measures 24 Hounsfield unit density. 2.6 x 3.4 cm lobulated cyst in anterior aspect of the left hepatic lobe is also noted. 1.4 x 1.4 cm hypodensity is noted in anterior inferior aspect of right hepatic lobe and measures fluid density. These are unchanged from previous CT angiogram of chest study. Gallbladder is within normal limits. Pancreas is normal in contours. Spleen is normal in size. No adrenal nodules. Peritoneum and bowel: Unenhanced bowel loops demonstrate normal wall thickness and caliber. No free fluid or air. The appendix is visualized and is within normal limits. Nodes and vessels: No retroperitoneal or mesenteric adenopathy by size criteria. Aorta and inferior vena cava are normal in caliber. Abdominal wall: No ventral hernias. Pelvis: No free pelvic fluid. No inguinal hernias or adenopathy. Patient is status post prostatectomy with post surgical changes in pelvis. Bones: No suspicious bony lesions. No vertebral body compression fractures. IMPRESSION: 1. Large solid appearing right renal mass replacing normal right renal tissue with markedly enlarged right kidney measures up to 9.3 x 11.1 x 15.5 cm in size. Finding is highly suggestive of malignant process involving right kidney such as renal cell carcinoma. 2. No left renal stone or hydronephrosis is seen. 3. Partially distended urinary bladder containing a Doshi catheter with suggestion of bladder wall thickening and blood clots within bladder lumen. 4. Multiple hypodensities scattered in liver parenchyma, not significantly changed in size and appearance from recent CT echogram of chest study and may represent hepatic cysts. 5. Patient is status post prostatectomy. Findings were reported to ER referring clinician at 8 PM on 07/13/18. Dictated by: Liborio Stafford M.D. on 07/13/2018 at 19:50 Approved by: Liborio Stafford M.D. on 07/13/2018 at 20:03 CT scan - abdomen: Radiologist's impression: [address] [address] [address] Scan Report Signed Patient: Kwan Reese MR#: [id number] : 1950 Acct:[id number] Age/Sex: 67 / M Date of Service: 07/13/18 Loc: ED Accession Number: [id number] Procedure: CT abdomen pelvis w con Ordering Provider: Federica Monteiro-BC PROCEDURE: CT ABDOMEN PELVIS W CON INDICATIONS: renal mass TECHNIQUE: After the administration of intravenous contrast, 5 mm thick sections acquired from the diaphragm to the symphysis. 5 mm coronal and sagittal reformats were acquired. For radiation dose reduction, the following was used: automated exposure control, adjustment of mA and/or kV according to patient size. COMPARISON: [facility], CT, CT KIDNEY URETER BLADDER (KUB), 07/13/2018, 19:22. FINDINGS: Image quality: Excellent. ABDOMEN: Lung bases: Lung bases are clear. Heart size is normal. Solid organs: Liver is normal in size. Multiple hypoenhancing areas are seen scattered in liver parenchyma measures up to 2.8 x 2.5 cm in size in right hepatic dome. No definite contrast enhancement is seen although the smaller lesions are too small to adequately characterize. Gallbladder is within normal limits.. Biliary system is non dilated. Pancreas enhances normally. Spleen is normal in size. 8 mm cyst is seen in lateral periphery of the spleen. No adrenal nodules. Again noted is a large heterogeneously enhancing mass replacing normal right renal cortical parenchyma and measures up to 9.7 x 11 x 16 cm in its largest transverse, AP, and clinical examinations. No left-sided hydronephrosis or renal stone is seen. 1.5 cm cortical cyst is seen in lower pole of left kidney. No significant perinephric fat stranding or fluid. Peritoneum and bowel: Bowel loops demonstrate normal wall thickness and caliber. No free fluid or air. Nodes and vessels: No retroperitoneal or mesenteric adenopathy by size criteria. Aorta is normal in size. There is hypodensity seen within enlarged right renal vein extending into IVC suggestive of tumor mass invasion of right renal vein and IVC. Extent of tumor invasion is suboptimally evaluated on this study. Left renal vein is patent. Miscellaneous: No ventral hernias. PELVIS: Genitourinary: Doshi catheter is seen in a decompressed urinary bladder. Ill-defined hyperdensity is seen within the bladder lumen with suggestion of diffuse bladder wall thickening. The finding could represent cystitis and blood clots within the bladder lumen. Underlying bladder wall mass cannot be entirely excluded. Miscellaneous: No inguinal hernias or adenopathy. Bones: No suspicious bony lesions. No vertebral body compression fractures. IMPRESSION: 1. 9.7 x 11 x 16 cm heterogeneously enhancing mass replacing normal right renal parenchyma, highly suggestive of malignant process such as renal cell carcinoma. There is tumor mass invasion of right renal vein and IVC. 2. No gross left renal mass or hydronephrosis. 3. Diffuse bladder wall thickening and internal hyperdensity, suspicious for cystitis with blood clot. Underlying bladder wall mass cannot be entirely excluded. 4. Numerous hypodensities scattered in liver parenchyma, which may represent hepatic cysts. Small metastatic liver lesion cannot be entirely excluded. Small 8mm cyst in spleen. Findings were reported to referring ER physician at 10:10 PM on 07/13/18. Dictated by: Liborio Stafford M.D. on 07/13/2018 at 22:04 Approved by: Liborio Stafford M.D. on 07/13/2018 at 22:13 MDM Narrative Medical decision making narrative: Patient is a 67-year-old male who presents with chief complaint ?I think I have a UTI.? Urine illustrated nitrites, bacteria blood. His renal function is comparable to his last visit last month. However on CT scan large right kidney mass was noted. I spoke with both nephrology and urology regarding the case, assuring follow up with Dr Clark with Urology at [facility]. I spoke at length with the patient and his about the possible serious implications of this finding, as well as the hypodense masses found in his liver as well as spleen. A Doshi was inserted due to the patient's inability to void and blood clots on CT, and CBI and flushing was done however the patient was having severe bladder spasms, draining urine around his Doshi, and the blood back fluid into his CBI bag. Given the difficulties flushing his bladder, I contacted Dr. Clark again regarding potential for transfer. He suggested administering oxybutynin and then transferring the patient. Discharge Plan Departure Patient Disposition: [facility] Clinical Impression: Acute UTI, Kidney mass, Hypodense mass of liver, Acute urinary retention Instructions: How to Care for Your Doshi Catheter -- Male, DI for Urinary Tract Infection (UTI) Prescriptions: New levofloxacin 500 mg tablet 500 mg PO DAILY Qty: 10 RF: 0 No Action cetirizine 10 MG tablet 10 mg PO DAILY Qty: 0 RF: 0 metformin [Glucophage] 500 MG tablet 1,000 mg PO BID Qty: 0 RF: 0 lisinopril 40 MG tablet 40 mg PO DAILY Qty: 0 RF: 0 clonidine HCl 0.2 MG tablet 0.2 mg PO BID Qty: 0 RF: 0 aspirin 81 mg Tablet,Delayed Release (Dr/Ec) 81 mg PO QPM RF: 0 atorvastatin [Lipitor] 40 mg Tablet 40 mg PO QPM RF: 0 chlorthalidone 25 mg Tablet 25 mg PO DAILY RF: 0 ergocalciferol (vitamin D2) [Vitamin D2] 50,000 unit Capsule 50,000 unit PO DIRECTED RF: 0 fluticasone [Flonase Allergy Relief] 50 mcg/actuation Phyllis,Suspension 2 spray INTRANASAL DAILY RF: 0 sitagliptin [Januvia] 100 mg Tablet 100 mg PO DAILY RF: 0 docosahexanoic acid-epa [Fish Oil] 120-180 mg Capsule 1 cap PO QPM RF: 0 docosahexanoic acid-epa [Fish Oil] 120-180 mg Capsule 2 cap PO QAM RF: 0 nitroglycerin [Nitrostat] 0.4 mg Tablet, Sublingual 0.4 mg Sublingual [id number] PRN (Reason: Chest Pain) Qty: 25 RF: 0 metoprolol succinate 25 mg Tablet Extended Release 24 Hr 75 mg PO BID Qty: 60 RF: 0 Referrals: [facility] [Provider Group] [facility] [Outside]
--- NOTE | 2018-07-13 17:54 | ED_ITS ---
HPI - Male Genitourinary General Chief complaint: Urogenital-Male Stated complaint: thinks he has a UTI Time Seen by Provider: 07/13/18 17:36 Source: patient and family Mode of arrival: ambulatory Limitations: no limitations History of Present Illness HPI Narrative: Patient is a 67-year-old male nonsmoker the presents with a chief complaint of ?I think I have a urinary tract infection.? He states he trouble urinating after 8:00 a.m. this morning, and when he does urinate is full of blood clots and dark. He denies any abdominal pain, chest pain, abnormal shortness of breath, fever, nausea vomiting diarrhea or flank pain. He states his urine is very dark and thick. He has a history of prostate cancer. Related Data Home Medications Medication Instructions Recorded Confirmed cetirizine 10 mg PO DAILY #0 03/05/12 06/15/18 clonidine HCl 0.2 mg PO BID #0 03/05/12 06/15/18 lisinopril 40 mg PO DAILY #0 03/05/12 06/15/18 metformin [Glucophage] 1,000 mg PO BID #0 03/05/12 06/15/18 aspirin 81 mg PO QPM 06/15/18 06/15/18 atorvastatin [Lipitor] 40 mg PO QPM 06/15/18 06/15/18 chlorthalidone 25 mg PO DAILY 06/15/18 06/15/18 docosahexanoic acid-epa [Fish Oil] 1 cap PO QPM 06/15/18 06/15/18 docosahexanoic acid-epa [Fish Oil] 2 cap PO QAM 06/15/18 06/15/18 ergocalciferol (vitamin D2) 50,000 unit PO DIRECTED 06/15/18 06/15/18 [Vitamin D2] fluticasone [Flonase Allergy 2 spray INTRANASAL DAILY 06/15/18 06/15/18 Relief] sitagliptin [Januvia] 100 mg PO DAILY 06/15/18 06/15/18 Previous Rx's Medication Instructions Recorded metoprolol succinate 75 mg PO BID #60 tab 06/19/18 nitroglycerin [Nitrostat] 0.4 mg SUBLINGUAL [id number] PRN #25 06/19/18 tab levofloxacin 500 mg PO DAILY #10 tab 07/13/18 Allergies Allergy/AdvReac Type Severity Reaction Status Date / Time Iodinated Contrast- Oral and Allergy Intermediate Difficulty Verified 07/13/18 17:05 IV Dye Swallowing Review of Systems Review of Systems GENERAL: This is a well-nourished, well-developed patient, in mild distress. HEAD: Atraumatic. Normocephalic. No temporal or scalp tenderness. EYES: Pupils equal round and reactive. Extraocular motions intact. No scleral icterus. No injection or drainage. ENT: Nose without bleeding, purulent drainage or septal hematoma. Throat without erythema, tonsillar hypertrophy or exudate. Uvula midline. Airway patent. NECK: Trachea midline. No JVD or lymphadenopathy. Supple, nontender, no meningeal signs. CARDIOVASCULAR: Regular rate and rhythm without murmurs, gallops, or rubs. RESPIRATORY: Clear to auscultation. Breath sounds equal bilaterally. No wheezes , rales, or rhonchi. GASTROINTESTINAL: See HPI EXTREMITIES: No clubbing, cyanosis, or edema. No joint tenderness, effusion, or edema noted. BACK: Nontender without deformity or crepitance. No flank tenderness. NEURO: AOx3. SKIN: No rash or erythema. [facility] Medical History Diabetes (Acute) Hyperlipidemia (Acute) Hypertension (Acute) Social History household members: spouse Smoking Status: Never smoker Exam Narrative Exam Narrative: GENERAL: This is a well-nourished, well-developed patient, in no acute distress HEAD: Atraumatic. Normocephalic. No temporal or scalp tenderness. EYES: Pupils equal round and reactive. Extraocular motions intact. No scleral icterus. No injection or drainage. ENT: Nose without bleeding, purulent drainage or septal hematoma. Throat without erythema, tonsillar hypertrophy or exudate. Uvula midline. Airway patent. NECK: Trachea midline. No JVD or lymphadenopathy. Supple, nontender, no meningeal signs. CARDIOVASCULAR: Regular rate and rhythm without murmurs, gallops, or rubs. RESPIRATORY: Clear to auscultation. Breath sounds equal bilaterally. No wheezes , rales, or rhonchi. No cough. No increased respiratory effort. GASTROINTESTINAL: Abdomen soft, non-tender, nondistended. No hepato-splenomegaly , or palpable masses. No guarding. EXTREMITIES: No clubbing, cyanosis, or edema. No joint tenderness, effusion, or edema noted. BACK: Nontender without deformity or crepitance. No flank tenderness. : Doshi in place, draining red urine with sediment. NEURO: AOx3. SKIN: No rash or erythema. Initial Vital Signs Initial Vital Signs: Vital Signs Temperature 98.1 F 07/13/18 17:02 Pulse Rate 89 07/13/18 17:02 Respiratory Rate 18 07/13/18 17:02 Blood Pressure 183/101 H 07/13/18 17:02 Pulse Oximetry 100 07/13/18 17:02 Course Course Narrative: I met with the patient his several times throughout his stay in the emergency department. Upon receipt of his CT results, I spoke at length regarding the results as well as a possible gravity of the situation. I spoke regarding the possibility of a carcinoma. I discussed at length that he will hear from [facility] tomorrow, and discussed that he might have an appointment on Thursday at about noon. Prior to ordering the CT with contrast, checked the patient due to his allergy any well managed a CT with contrast during his last stay for a possible PE with premedication. Patient was signed out to Dr Eddy at 23:30 with transport pending, having received oxybutynin, Percocet, Zofran and IV fluids. CBI disconnected due to pain and recommendations of Dr. Clark Orders Ordered: ED Orders 07/13/18 17:21 Ictotest Urine Stat Urinalysis and Microscopic Stat Urine Culture Stat 07/13/18 18:29 Complete Blood Count AUTO DIFF Stat Comprehensive Metabolic Panel Stat Lipase Stat Partial Thromboplastin Time Stat Prothrombin Time INR Stat Troponin & CK Cardiac Panel Stat 07/13/18 19:25 CT kidney ureter bladder (KUB) Stat 07/13/18 21:11 CT abdomen pelvis w con Stat [place] Alkaloids/Opium (B&O Supprettes) 1 each HI Q4HR PRN PRN Reason: Spasms Sodium Chloride (Normal Saline 0.9%) 1,000 mls @ 150 mls/hr IV CONT JUAN ANTONIO Last Admin: 07/13/18 23:24 Dose: 150 mls/hr Oxybutynin (Ditropan) 10 mg PO DAILY JUAN ANTONIO Discontinued Medications Amoxicillin (Amoxicillin (250 Mg/5 Ml) Prepack) 1 bottle MISC SEEINSTR ONE Stop: 07/13/18 21:23 Last Admin: 07/13/18 21:38 Dose: Diphenhydramine HCl (Benadryl) 50 mg IV NOW ONE Stop: 07/13/18 21:03 Last Admin: 07/13/18 21:18 Dose: 50 mg Sodium Chloride (Normal Saline 0.9%) 1,000 mls @ 1,000 mls/hr IV BOLUS ONE Stop: 07/13/18 18:24 Last Infusion: 07/13/18 18:55 Dose: 0 mls/hr Admin: 07/13/18 17:43 Dose: 1,000 mls/hr Famotidine (Pepcid) 20 mg in 50 mls @ 200 mls/hr IV NOW ONE Stop: 07/13/18 21:18 Last Infusion: 07/13/18 21:30 Dose: 0 mls/hr Admin: 07/13/18 21:17 Dose: 200 mls/hr Levofloxacin (Levaquin) 500 mg PO NOW ONE Stop: 07/13/18 22:01 Last Admin: 07/13/18 23:16 Dose: 500 mg Methylprednisolone (Solu-Medrol 125 Mg Vial) 125 mg IV NOW ONE Stop: 07/13/18 21:03 Last Admin: 07/13/18 21:17 Dose: 125 mg Ondansetron HCl (Zofran Odt) 4 mg PO NOW ONE Stop: 07/13/18 23:19 Last Admin: 07/13/18 23:23 Dose: 4 mg Oxycodone/Acetaminophen (Percocet 5/325) 2 tab PO NOW ONE Stop: 07/13/18 23:19 Last Admin: 07/13/18 23:23 Dose: 2 tab Phenazopyridine HCl (Pyridium) 200 mg PO NOW ONE Stop: 07/13/18 22:56 Consultations Consultation #1: I spoke with the radiologist regarding the patient's CT scan results. Time: 20:00 Consultation #2: I spoke with Nephrology from [facility], suggested that I speak with Urology. Consultation #3: I spoke with Dr Clark, urology at [facility]. He was able to get contact information for the patient, and states he will likely have an appointment with him at about noon on Thursday. He suggested doing [address] flushing, or hand flushing of the fully to help expedite removal of the clots. He requested a CT with contrast prior to the patient's appointment, which was ordered with premedications due to the patient's allergy. He also suggested treating the infection in his urine at this point due to the nitrates in his urine. Vital Signs - 8 hr 07/13/18 17:02 07/13/18 17:44 07/13/18 21:45 Temperature 98.1 F Pulse Rate 89 80 Respiratory Rate 18 14 Blood Pressure 183/101 H Blood Pressure [Left Arm] 159/81 H 156/106 H Pulse Oximetry 100 98 99 MDM - Male Genitourinary Lab Data Result diagrams: 07/13/18 18:29 07/13/18 18:29 Lab Results 07/13/18 07/13/18 07/13/18 Range/Units 17:21 17:21 18:29 WBC 9.8 (4.5-11.0) X10^3/uL RBC 4.55 (4.5-5.9) X10^6/uL Hgb 11.1 L (13.5-17.5) g/dL Hct 33.5 L (41-53) % MCV 73.6 L (80-100) fL MCH 24.4 L (26-34) PG MCHC 33.2 (30-36) % RDW 16.9 H (11.6-14.8) % Plt Count 224 (150-400) X10^3/uL Neut % (Auto) 83.5 H (50-75) % Lymph % (Auto) 9.1 L (25-40) % [place] % (Auto) 5.7 (3-14) % Eos % (Auto) 0.9 L (2-4) % Baso % (Auto) 0.8 (0-2) % Neut # (Auto) 8200 H (7704-6684) /uL PT (10.1-12.7) SECONDS INR (0.9-1.3) APTT (26.4-36.2) SECONDS Sodium (137-145) mmol/L Potassium (3.4-5.1) mmol/L Chloride (98-107) mmol/L Carbon Dioxide (22-32) mmol/L BUN (9-20) mg/dL Creatinine (0.66-1.25) mg/dL Estimated GFR (>60) mL/min BUN/Creatinine Ratio (6-22) Glucose (80-110) mg/dL Calcium (8.4-10.2) mg/dL Total Bilirubin (0.2-1.3) mg/dL AST (17-59) IU/L ALT (21-72) IU/L Alkaline Phosphatase (38-126) U/L Total Creatine Kinase (55-170) U/L CK-MB (CK-2) CK-MB (CK-2) Rel Index Troponin I (0.01-0.034) ng/mL Total Protein (6.3-8.2) g/dL Albumin (3.5-5.0) g/dL Globulin (1.7-4.1) g/dL Albumin/Globulin Ratio (1.0-2.8) Lipase (23-300) U/L Urine Color Red Urine Appearance Other Urine pH 6.5 (4.5-8.0) Ur Specific [place] 1.025 (1.000-1.035) Urine Protein 3+ H (Negative) Urine Glucose (UA) Negative (Normal) g/dL Urine Ketones Trace H (NEGATIVE) Urine Occult Blood 3+ H (Negative) Urine Nitrate Positive (Negative) Urine Bilirubin 1+ H (NEGATIVE) Urine Ictotest Negative (Negative) Urine Urobilinogen 1.0 (0.2) E.U./dL Ur Leukocyte Esterase Trace H (NEGATIVE) Urine RBC >100/hpf (0-5/HPF) Urine WBC 5-10/hpf H (0-5/HPF) Ur Squamous Epith Cells 0-1 /hpf Amorphous Sediment 3+ Urine Bacteria Moderate (10-30) H (None) Urine Mucus 1+ H (Negative) Ur Culture Indicated? Specimen cultured Micro UA Comment Not Reportable 07/13/18 07/13/18 07/13/18 Range/Units 18:29 18:29 18:29 WBC (4.5-11.0) X10^3/uL RBC (4.5-5.9) X10^6/uL Hgb (13.5-17.5) g/dL Hct (41-53) % MCV (80-100) fL MCH (26-34) PG MCHC (30-36) % RDW (11.6-14.8) % Plt Count (150-400) X10^3/uL Neut % (Auto) (50-75) % Lymph % (Auto) (25-40) % Garvin % (Auto) (3-14) % Eos % (Auto) (2-4) % Baso % (Auto) (0-2) % Neut # (Auto) (5378-6349) /uL PT 13.1 H (10.1-12.7) SECONDS INR 1.1 (0.9-1.3) APTT 28 D (26.4-36.2) SECONDS Sodium 138 (137-145) mmol/L Potassium 5.2 H (3.4-5.1) mmol/L Chloride 99 (98-107) mmol/L Carbon Dioxide 28 (22-32) mmol/L BUN 28 H (9-20) mg/dL Creatinine 1.50 H (0.66-1.25) mg/dL Estimated GFR 46.7 L (>60) mL/min BUN/Creatinine Ratio 18.7 (6-22) Glucose 152 H (80-110) mg/dL Calcium 8.7 (8.4-10.2) mg/dL Total Bilirubin 0.6 (0.2-1.3) mg/dL AST 18 (17-59) IU/L ALT 20 L (21-72) IU/L Alkaline Phosphatase 93 (38-126) U/L Total Creatine Kinase 49 L (55-170) U/L CK-MB (CK-2) TNP CK-MB (CK-2) Rel Index TNP Troponin I < 0.012 (0.01-0.034) ng/mL Total Protein 6.6 (6.3-8.2) g/dL Albumin 3.8 (3.5-5.0) g/dL Globulin 2.8 (1.7-4.1) g/dL Albumin/Globulin Ratio 1.4 (1.0-2.8) Lipase 90 (23-300) U/L Urine Color Urine Appearance Urine pH (4.5-8.0) Ur Specific [place] (1.000-1.035) Urine Protein (Negative) Urine Glucose (UA) (Normal) g/dL Urine Ketones (NEGATIVE) Urine Occult Blood (Negative) Urine Nitrate (Negative) Urine Bilirubin (NEGATIVE) Urine Ictotest (Negative) Urine Urobilinogen (0.2) E.U./dL Ur Leukocyte Esterase (NEGATIVE) Urine RBC (0-5/HPF) Urine WBC (0-5/HPF) Ur Squamous Epith Cells Amorphous Sediment Urine Bacteria (None) Urine Mucus (Negative) Ur Culture Indicated? Micro UA Comment Imaging Data CT KUB: Radiologist's impression: Launch Image View Report History [address] [address] [address] Scan Report Signed Patient: Kwan Reese MR#: [id number] : 1950 Acct:[id number] Age/Sex: 67 / M Date of Service: 07/13/18 Loc: ED Accession Number: [id number] Procedure: CT kidney ureter bladder (KUB) Ordering Provider: Federica Monteiro [employer]-BC PROCEDURE: CT KIDNEY URETER BLADDER (KUB) INDICATIONS: decreased UOP, bloody urine TECHNIQUE: Noncontrast 5 mm thick sections acquired from the diaphragms to the symphysis. 5 mm thick coronal and sagittal reformats were then performed. For radiation dose reduction, the following was used: automated exposure control, adjustment of mA and/or kV according to patient size. COMPARISON: [facility], CT, CT [place], 02/20/2014, 10:17. [facility], CT, CT ANGIO CHEST PE PROTOCOL, 06/15/2018, 12:40. FINDINGS: Image quality: Excellent. Lung bases: Lung bases are clear. Heart size is normal. Urinary system: Markedly enlarged right kidney is noted with suggestion of solid appearing mass replacing the right renal tissue, and measures up to 9.3 x 11.1 x 15.5 cm in its largest transverse, AP, and craniocaudal dimensions. Finding is highly suspicious for renal cell carcinoma. Left kidney is normal in size. No left-sided hydronephrosis. Nonspecific mild left perinephric fat stranding is seen. No left-sided renal stone. Both ureters appear non-dilated throughout their expected courses. Urinary bladder is partially distended and shows diffuse bladder wall thickening. There is suggestion of a Doshi catheter within bladder lumen. Hyperdensity within bladder lumen is noted suggestive of blood clots. No gross calcified bladder stone. Other solid organs: Liver is normal in size. 2.3 x 3.4 cm oval hypodensity in right hepatic dome is seen and measures 24 Hounsfield unit density. 2.6 x 3.4 cm lobulated cyst in anterior aspect of the left hepatic lobe is also noted. 1.4 x 1.4 cm hypodensity is noted in anterior inferior aspect of right hepatic lobe and measures fluid density. These are unchanged from previous CT angiogram of chest study. Gallbladder is within normal limits. Pancreas is normal in contours. Spleen is normal in size. No adrenal nodules. Peritoneum and bowel: Unenhanced bowel loops demonstrate normal wall thickness and caliber. No free fluid or air. The appendix is visualized and is within normal limits. Nodes and vessels: No retroperitoneal or mesenteric adenopathy by size criteria. Aorta and inferior vena cava are normal in caliber. Abdominal wall: No ventral hernias. Pelvis: No free pelvic fluid. No inguinal hernias or adenopathy. Patient is status post prostatectomy with post surgical changes in pelvis. Bones: No suspicious bony lesions. No vertebral body compression fractures. IMPRESSION: 1. Large solid appearing right renal mass replacing normal right renal tissue with markedly enlarged right kidney measures up to 9.3 x 11.1 x 15.5 cm in size. Finding is highly suggestive of malignant process involving right kidney such as renal cell carcinoma. 2. No left renal stone or hydronephrosis is seen. 3. Partially distended urinary bladder containing a Doshi catheter with suggestion of bladder wall thickening and blood clots within bladder lumen. 4. Multiple hypodensities scattered in liver parenchyma, not significantly changed in size and appearance from recent CT echogram of chest study and may represent hepatic cysts. 5. Patient is status post prostatectomy. Findings were reported to ER referring clinician at 8 PM on 07/13/18. Dictated by: Liborio Stafford M.D. on 07/13/2018 at 19:50 Approved by: Liborio Stafford M.D. on 07/13/2018 at 20:03 CT scan - abdomen: Radiologist's impression: [address] [address] [address] Scan Report Signed Patient: Kwan Reese MR#: [id number] : 1950 Acct:[id number] Age/Sex: 67 / M Date of Service: 07/13/18 Loc: ED Accession Number: [id number] Procedure: CT abdomen pelvis w con Ordering Provider: Federica Monteiro-BC PROCEDURE: CT ABDOMEN PELVIS W CON INDICATIONS: renal mass TECHNIQUE: After the administration of intravenous contrast, 5 mm thick sections acquired from the diaphragm to the symphysis. 5 mm coronal and sagittal reformats were acquired. For radiation dose reduction, the following was used: automated exposure control, adjustment of mA and/or kV according to patient size. COMPARISON: [facility], CT, CT KIDNEY URETER BLADDER (KUB), 07/13/2018, 19 :22. FINDINGS: Image quality: Excellent. ABDOMEN: Lung bases: Lung bases are clear. Heart size is normal. Solid organs: Liver is normal in size. Multiple hypoenhancing areas are seen scattered in liver parenchyma measures up to 2.8 x 2.5 cm in size in right hepatic dome. No definite contrast enhancement is seen although the smaller lesions are too small to adequately characterize. Gallbladder is within normal limits.. Biliary system is non dilated. Pancreas enhances normally. Spleen is normal in size. 8 mm cyst is seen in lateral periphery of the spleen. No adrenal nodules. Again noted is a large heterogeneously enhancing mass replacing normal right renal cortical parenchyma and measures up to 9.7 x 11 x 16 cm in its largest transverse, AP, and clinical examinations. No left-sided hydronephrosis or renal stone is seen. 1.5 cm cortical cyst is seen in lower pole of left kidney. No significant perinephric fat stranding or fluid. Peritoneum and bowel: Bowel loops demonstrate normal wall thickness and caliber. No free fluid or air. Nodes and vessels: No retroperitoneal or mesenteric adenopathy by size criteria. Aorta is normal in size. There is hypodensity seen within enlarged right renal vein extending into IVC suggestive of tumor mass invasion of right renal vein and IVC. Extent of tumor invasion is suboptimally evaluated on this study. Left renal vein is patent. Miscellaneous: No ventral hernias. PELVIS: Genitourinary: Doshi catheter is seen in a decompressed urinary bladder. Ill- defined hyperdensity is seen within the bladder lumen with suggestion of diffuse bladder wall thickening. The finding could represent cystitis and blood clots within the bladder lumen. Underlying bladder wall mass cannot be entirely excluded. Miscellaneous: No inguinal hernias or adenopathy. Bones: No suspicious bony lesions. No vertebral body compression fractures. IMPRESSION: 1. 9.7 x 11 x 16 cm heterogeneously enhancing mass replacing normal right renal parenchyma, highly suggestive of malignant process such as renal cell carcinoma. There is tumor mass invasion of right renal vein and IVC. 2. No gross left renal mass or hydronephrosis. 3. Diffuse bladder wall thickening and internal hyperdensity, suspicious for cystitis with blood clot. Underlying bladder wall mass cannot be entirely excluded. 4. Numerous hypodensities scattered in liver parenchyma, which may represent hepatic cysts. Small metastatic liver lesion cannot be entirely excluded. Small 8mm cyst in spleen. Findings were reported to referring ER physician at 10:10 PM on 07/13/18. Dictated by: Liborio Stafford M.D. on 07/13/2018 at 22:04 Approved by: Liborio Stafford M.D. on 07/13/2018 at 22:13 MDM Narrative Medical decision making narrative: Patient is a 67-year-old male who presents with chief complaint ?I think I have a UTI.? Urine illustrated nitrites, bacteria blood. His renal function is comparable to his last visit last month. However on CT scan large right kidney mass was noted. I spoke with both nephrology and urology regarding the case, assuring follow up with Dr Clark with Urology at [facility]. I spoke at length with the patient and his about the possible serious implications of this finding, as well as the hypodense masses found in his liver as well as spleen. A Doshi was inserted due to the patient's inability to void and blood clots on CT, and CBI and flushing was done however the patient was having severe bladder spasms, draining urine around his Doshi, and the blood back fluid into his CBI bag. Given the difficulties flushing his bladder, I contacted Dr. Clark again regarding potential for transfer. He suggested administering oxybutynin and then transferring the patient. Discharge Plan Departure Patient Disposition: [facility] Clinical Impression: Acute UTI, Kidney mass, Hypodense mass of liver, Acute urinary retention Instructions: How to Care for Your Doshi Catheter -- Male, DI for Urinary Tract Infection (UTI) Prescriptions: New levofloxacin 500 mg tablet 500 mg PO DAILY Qty: 10 RF: 0 No Action cetirizine 10 MG tablet 10 mg PO DAILY Qty: 0 RF: 0 metformin [Glucophage] 500 MG tablet 1,000 mg PO BID Qty: 0 RF: 0 lisinopril 40 MG tablet 40 mg PO DAILY Qty: 0 RF: 0 clonidine HCl 0.2 MG tablet 0.2 mg PO BID Qty: 0 RF: 0 aspirin 81 mg Tablet,Delayed Release (Dr/Ec) 81 mg PO QPM RF: 0 atorvastatin [Lipitor] 40 mg Tablet 40 mg PO QPM RF: 0 chlorthalidone 25 mg Tablet 25 mg PO DAILY RF: 0 ergocalciferol (vitamin D2) [Vitamin D2] 50,000 unit Capsule 50,000 unit PO DIRECTED RF: 0 fluticasone [Flonase Allergy Relief] 50 mcg/actuation [place],Suspension 2 spray INTRANASAL DAILY RF: 0 sitagliptin [Januvia] 100 mg Tablet 100 mg PO DAILY RF: 0 docosahexanoic acid-epa [Fish Oil] 120-180 mg Capsule 1 cap PO QPM RF: 0 docosahexanoic acid-epa [Fish Oil] 120-180 mg Capsule 2 cap PO QAM RF: 0 nitroglycerin [Nitrostat] 0.4 mg Tablet, Sublingual 0.4 mg Sublingual [id number] PRN (Reason: Chest Pain) Qty: 25 RF: 0 metoprolol succinate 25 mg Tablet Extended Release 24 Hr 75 mg PO BID Qty: 60 RF: 0 Referrals: [facility] [Provider Group] [facility] [Outside]
[2018-07-13 18:38] LABS: Add Manual Diff / Slide Review NO; Basophils Percent Auto 0.8 % (0-2); Eosinophils Percent Auto 0.9 % (2-4); Hematocrit 33.5 % (41-53); Hemoglobin 11.1 g/dL (13.5-17.5); Lymphocytes Percent Auto 9.1 % (25-40); Mean Corpuscular HGB Conc 33.2 % (30-36); Mean Corpuscular Hemoglobin 24.4 PG (26-34); Mean Corpuscular Volume 73.6 fL (80-100); Monocytes Percent Auto 5.7 % (3-14); Neutrophils Absolute Auto 8200 /uL (1500-7000); Neutrophils Percent Auto 83.5 % (50-75); Platelet Count 224 X10^3/uL (150-400); Red Blood Cell Count 4.55 X10^6/uL (4.5-5.9); Red Cell Distribution Width 16.9 % (11.6-14.8); White Blood Cell Count 9.8 X10^3/uL (4.5-11.0)
[2018-07-13 18:42] LABS: INR 1.1 (0.9-1.3); Prothrombin Time 13.1 SECONDS (10.1-12.7)
[2018-07-13 18:44] LABS: PTT Partial Thromboplastin Tim 28 SECONDS (26.4-36.2)
[2018-07-13 19:05] LABS: Creatine Kinase 49 U/L (55-170)
[2018-07-13 19:06] LABS: Alanine Aminotransferase 20 IU/L (21-72); Albumin 3.8 g/dL (3.5-5.0); Albumin Globulin Ratio 1.4 (1.0-2.8); Alkaline Phosphatase 93 U/L (38-126); Aspartate Aminotransferase 18 IU/L (17-59); BUN Creatinine Ratio 18.7 (6-22); Bilirubin Total 0.6 mg/dL (0.2-1.3); Blood Urea Nitrogen 28 mg/dL (9-20); Calcium 8.7 mg/dL (8.4-10.2); Carbon Dioxide 28 mmol/L (22-32); Chloride 99 mmol/L (98-107); Estimated Glomerular Filt Rate 46.7 mL/min (>60); Globulin 2.8 g/dL (1.7-4.1); Glucose 152 mg/dL (80-110); HEMOLYSIS < 15 (0-50); Lipase 90 U/L (23-300); Potassium 5.2 mmol/L (3.4-5.1); Sodium 138 mmol/L (137-145); Total Protein 6.6 g/dL (6.3-8.2)
[2018-07-13 19:19] LABS: Troponin I < 0.012 ng/mL (0.01-0.034)
--- NOTE | 2018-07-13 19:25 | DI.CT.S_ITS ---
PROCEDURE: CT KIDNEY URETER BLADDER (KUB) INDICATIONS: decreased UOP, bloody urine TECHNIQUE: Noncontrast 5 mm thick sections acquired from the diaphragms to the symphysis. 5 mm thick coronal and sagittal reformats were then performed. For radiation dose reduction, the following was used: automated exposure control, adjustment of mA and/or kV according to patient size. COMPARISON: [facility], CT, CT CAMERON, 02/20/2014, 10:17. [facility], CT, CT ANGIO CHEST PE PROTOCOL, 06/15/2018, 12:40. FINDINGS: Image quality: Excellent. Lung bases: Lung bases are clear. Heart size is normal. Urinary system: Markedly enlarged right kidney is noted with suggestion of solid appearing mass replacing the right renal tissue, and measures up to 9.3 x 11.1 x 15.5 cm in its largest transverse, AP, and craniocaudal dimensions. Finding is highly suspicious for renal cell carcinoma. Left kidney is normal in size. No left-sided hydronephrosis. Nonspecific mild left perinephric fat stranding is seen. No left-sided renal stone. Both ureters appear non-dilated throughout their expected courses. Urinary bladder is partially distended and shows diffuse bladder wall thickening. There is suggestion of a Doshi catheter within bladder lumen. Hyperdensity within bladder lumen is noted suggestive of blood clots. No gross calcified bladder stone. Other solid organs: Liver is normal in size. 2.3 x 3.4 cm oval hypodensity in right hepatic dome is seen and measures 24 Hounsfield unit density. 2.6 x 3.4 cm lobulated cyst in anterior aspect of the left hepatic lobe is also noted. 1.4 x 1.4 cm hypodensity is noted in anterior inferior aspect of right hepatic lobe and measures fluid density. These are unchanged from previous CT angiogram of chest study. Gallbladder is within normal limits. Pancreas is normal in contours. Spleen is normal in size. No adrenal nodules. Peritoneum and bowel: Unenhanced bowel loops demonstrate normal wall thickness and caliber. No free fluid or air. The appendix is visualized and is within normal limits. Nodes and vessels: No retroperitoneal or mesenteric adenopathy by size criteria. Aorta and inferior vena cava are normal in caliber. Abdominal wall: No ventral hernias. Pelvis: No free pelvic fluid. No inguinal hernias or adenopathy. Patient is status post prostatectomy with post surgical changes in pelvis. Bones: No suspicious bony lesions. No vertebral body compression fractures. IMPRESSION: 1. Large solid appearing right renal mass replacing normal right renal tissue with markedly enlarged right kidney measures up to 9.3 x 11.1 x 15.5 cm in size. Finding is highly suggestive of malignant process involving right kidney such as renal cell carcinoma. 2. No left renal stone or hydronephrosis is seen. 3. Partially distended urinary bladder containing a Doshi catheter with suggestion of bladder wall thickening and blood clots within bladder lumen. 4. Multiple hypodensities scattered in liver parenchyma, not significantly changed in size and appearance from recent CT echogram of chest study and may represent hepatic cysts. 5. Patient is status post prostatectomy. Findings were reported to ER referring clinician at 8 PM on 07/13/18. Dictated by: Liborio Stafford M.D. on 07/13/2018 at 19:50 Approved by: Liborio Stafford M.D. on 07/13/2018 at 20:03
--- NOTE | 2018-07-13 21:11 | DI.CT.S_ITS ---
PROCEDURE: CT ABDOMEN PELVIS W CON INDICATIONS: renal mass TECHNIQUE: After the administration of intravenous contrast, 5 mm thick sections acquired from the diaphragm to the symphysis. 5 mm coronal and sagittal reformats were acquired. For radiation dose reduction, the following was used: automated exposure control, adjustment of mA and/or kV according to patient size. COMPARISON: [facility], CT, CT KIDNEY URETER BLADDER (KUB), 07/13/2018, 19:22. FINDINGS: Image quality: Excellent. ABDOMEN: Lung bases: Lung bases are clear. Heart size is normal. Solid organs: Liver is normal in size. Multiple hypoenhancing areas are seen scattered in liver parenchyma measures up to 2.8 x 2.5 cm in size in right hepatic dome. No definite contrast enhancement is seen although the smaller lesions are too small to adequately characterize. Gallbladder is within normal limits.. Biliary system is non dilated. Pancreas enhances normally. Spleen is normal in size. 8 mm cyst is seen in lateral periphery of the spleen. No adrenal nodules. Again noted is a large heterogeneously enhancing mass replacing normal right renal cortical parenchyma and measures up to 9.7 x 11 x 16 cm in its largest transverse, AP, and clinical examinations. No left-sided hydronephrosis or renal stone is seen. 1.5 cm cortical cyst is seen in lower pole of left kidney. No significant perinephric fat stranding or fluid. Peritoneum and bowel: Bowel loops demonstrate normal wall thickness and caliber. No free fluid or air. Nodes and vessels: No retroperitoneal or mesenteric adenopathy by size criteria. Aorta is normal in size. There is hypodensity seen within enlarged right renal vein extending into IVC suggestive of tumor mass invasion of right renal vein and IVC. Extent of tumor invasion is suboptimally evaluated on this study. Left renal vein is patent. Miscellaneous: No ventral hernias. PELVIS: Genitourinary: Doshi catheter is seen in a decompressed urinary bladder. Ill-defined hyperdensity is seen within the bladder lumen with suggestion of diffuse bladder wall thickening. The finding could represent cystitis and blood clots within the bladder lumen. Underlying bladder wall mass cannot be entirely excluded. Miscellaneous: No inguinal hernias or adenopathy. Bones: No suspicious bony lesions. No vertebral body compression fractures. IMPRESSION: 1. 9.7 x 11 x 16 cm heterogeneously enhancing mass replacing normal right renal parenchyma, highly suggestive of malignant process such as renal cell carcinoma. There is tumor mass invasion of right renal vein and IVC. 2. No gross left renal mass or hydronephrosis. 3. Diffuse bladder wall thickening and internal hyperdensity, suspicious for cystitis with blood clot. Underlying bladder wall mass cannot be entirely excluded. 4. Numerous hypodensities scattered in liver parenchyma, which may represent hepatic cysts. Small metastatic liver lesion cannot be entirely excluded. Small 8mm cyst in spleen. Findings were reported to referring ER physician at 10:10 PM on 07/13/18. Dictated by: Liborio Stafford M.D. on 07/13/2018 at 22:04 Approved by: Liborio Stafford M.D. on 07/13/2018 at 22:13
[2018-07-13] MEDS: methylPREDNISolone 125 MG/2 ML VIAL IV (21:17)
[2018-07-13] MEDS: FAMOTIDINE 20 MG/50 ML PIGGYBACK 200 MG IV (21:17)
[2018-07-13] MEDS: diphenhydrAMINE 50 MG/ML VIAL IV (21:18)
[2018-07-13 21:45] VITALS: BP 156/106; O2SAT 99
[2018-07-13] MEDS: levoFLOXacin 250 MG TABLET 500 MG PO (23:16)
[2018-07-13] MEDS: OXYCODONE/ACETAMINOPHEN 5/325 TABLET 2 TAB PO (23:23)
[2018-07-13] MEDS: ONDANSETRON 4 MG ODT PO (23:23)
[2018-07-13] MEDS: SODIUM CHLORIDE 0.9% 1,000 ML 150 ML IV (23:24)
[2018-07-13 23:40] VITALS: BP 172/95; PULSE 87; RESP 18; TEMP 36.8; O2SAT 97
[2018-07-13] MEDS: BELLADONNA/OPIUM SUPPOSITORIES 1 EACH PR (23:48)
[2018-07-14 00:48] VITALS: BP 171/118; PULSE 89; RESP 18; O2SAT 98
--- NOTE | 2018-07-14 00:49 | PC.NURSE ---
patient being transferred and MD aware of patients blood pressure and patient has not taken night medications. patient taking home meds en route. patient also reports that he runs a higher blood pressure. no new orders at this time.
--- NOTE | 2018-07-14 00:52 | PC.NURSE ---
patient not given oxybutynin because we do not have this medication in night pharmacy or on the floor. unable to put not given because medication was ordered for 0900am.
== END 2018-07-14 00:50 | disposition short-term general hospital (02) ==
PROVIDERS: Nurse Practitioner Family; Emergency Provider Emergency Medicine
DX: N39.0 Urinary tract infection, site not specified (principal); N28.89 Other specified disorders of kidney and ureter; R16.0 Hepatomegaly, not elsewhere classified; R33.8 Other retention of urine
CPT/HCPCS: 36415; 51701; 51705; 51798; 74176; 74177; 80053; 81001; 82550; 83690; 84484; 85025; 85610; 85730; 87086; 96361; 96374; 96375; 99285; J1200; J2930; Q9967

== ENCOUNTER → 2018-08-12 13:55 | Outpatient (CLI) | payer MEDICARE, OTHER, SELFPAY ==
[2018-06-15 17:24] VITALS: BMI 38.0
== END ==
PROVIDERS: PCP General Practice; Visit Provider Family Medicine
DX: S31.100A Unspecified open wound of abdominal wall, right upper quadrant without penetration into peritoneal cavity, initial encounter (principal); T81.31XA Disruption of external operation (surgical) wound, not elsewhere classified, initial encounter
CPT/HCPCS: 11042; 99203; 99213

== ENCOUNTER → 2018-08-17 13:01 | Outpatient (CLI) | payer MEDICARE, OTHER, SELFPAY ==
[2018-06-15 17:24] VITALS: BMI 38.0
== END ==
PROVIDERS: PCP General Practice; Visit Provider Family Medicine
DX: S31.100A Unspecified open wound of abdominal wall, right upper quadrant without penetration into peritoneal cavity, initial encounter (principal); T81.31XA Disruption of external operation (surgical) wound, not elsewhere classified, initial encounter
CPT/HCPCS: 11042; 97605

== ENCOUNTER → 2018-08-19 13:09 | Outpatient (CLI) | payer MEDICARE, OTHER, SELFPAY ==
[2018-06-15 17:24] VITALS: BMI 38.0
== END ==
PROVIDERS: PCP General Practice; Visit Provider Family Medicine
DX: S31.100A Unspecified open wound of abdominal wall, right upper quadrant without penetration into peritoneal cavity, initial encounter (principal); T81.31XA Disruption of external operation (surgical) wound, not elsewhere classified, initial encounter
CPT/HCPCS: 11042; 97605

== ENCOUNTER 2018-08-23 16:22 | Emergency (ER) | payer MEDICARE, OTHER, SELFPAY ==
[2018-06-15 17:24] VITALS: BMI 38.0
[2018-08-23 16:25] VITALS: BP 156/96; PULSE 75; RESP 20; TEMP 36.2; O2SAT 95
--- NOTE | 2018-08-23 16:35 | DI.RAD.S_ITS ---
PROCEDURE: XR CHEST 1V INDICATIONS: edema, shortness of breath TECHNIQUE: One view of the chest was acquired. COMPARISON: [facility], CR, XR CHEST 1V, 06/15/2018, 10:30. FINDINGS: Surgical changes and devices: None. Lungs and pleura: Mild pulmonary vascular congestion is seen. No focal infiltrate. No pleural effusions or pneumothorax. Mediastinum: Mediastinal contours appear normal. Heart size is mildly enlarged. Bones and chest wall: No suspicious bony lesions. Overlying soft tissues appear unremarkable. IMPRESSION: Cardiomegaly and mild pulmonary vascular congestion. No focal infiltrate, pleural effusion or pneumothorax. Dictated by: Liborio Stafford M.D. on 08/23/2018 at 17:11 Approved by: Liborio Stafford M.D. on 08/23/2018 at 17:12
[2018-08-23 16:51] LABS: Add Manual Diff / Slide Review NO; Basophils Absolute Auto 100 /uL (0-100); Basophils Percent Auto 1.3 % (0-2); Eosinophils Absolute Auto 1200 /uL (0-450); Eosinophils Percent Auto 15.9 % (2-4); Hematocrit 31.6 % (41-53); Hemoglobin 10.1 g/dL (13.5-17.5); Lymphocytes Absolute Auto 1200 /uL (1100-4500); Mean Corpuscular HGB Conc 31.9 % (30-36); Mean Corpuscular Hemoglobin 26.6 PG (26-34); Mean Corpuscular Volume 83.5 fL (80-100); Monocytes Absolute Auto 400 /uL (0-900); Monocytes Percent Auto 5.6 % (3-14); Neutrophils Absolute Auto 4600 /uL (1500-7000); Neutrophils Percent Auto 61.2 % (50-75); Platelet Count 273 X10^3/uL (150-400); Red Blood Cell Count 3.78 X10^6/uL (4.5-5.9); Red Cell Distribution Width 17.9 % (11.6-14.8); White Blood Cell Count 7.5 X10^3/uL (4.5-11.0)
[2018-08-23 17:14] LABS: Prothrombin Time 11.8 SECONDS (10.1-12.7)
[2018-08-23 17:14] LABS: Alanine Aminotransferase 24 IU/L (21-72); Albumin 3.4 g/dL (3.5-5.0); Albumin Globulin Ratio 1.2 (1.0-2.8); Alkaline Phosphatase 88 U/L (38-126); Aspartate Aminotransferase 21 IU/L (17-59); BUN Creatinine Ratio 10.7 (6-22); Bilirubin Total 0.3 mg/dL (0.2-1.3); Blood Urea Nitrogen 16 mg/dL (9-20); Calcium 8.6 mg/dL (8.4-10.2); Carbon Dioxide 25 mmol/L (22-32); Chloride 103 mmol/L (98-107); Estimated Glomerular Filt Rate 46.5 mL/min (>60); Globulin 2.9 g/dL (1.7-4.1); Glucose 111 mg/dL (80-110); HEMOLYSIS 17 (0-50); Potassium 4.6 mmol/L (3.4-5.1); Sodium 135 mmol/L (137-145); Total Protein 6.3 g/dL (6.3-8.2)
[2018-08-23 17:17] LABS: B Type Natriuretic Peptide 137 (<100)
[2018-08-23 17:18] LABS: Lipase 59 U/L (23-300)
--- NOTE | 2018-08-23 17:45 | PC.NURSE ---
Patient severely swollen in lower extremities up to mid chest. Scrotum extremely swollen patient states unable to locate his penis to urinate. Patient saw PCP on thursday expressed concern in swelling. Patient has had a 20lb weight gain in last couple days.
[2018-08-23 17:48] VITALS: BP 156/96; PULSE 75; RESP 20; TEMP 36.2; O2SAT 95
--- NOTE | 2018-08-23 17:59 | ED_ITS ---
HPI - SOB/Dyspnea General Chief Complaint: Shortness of Breath/Dyspnea Stated Complaint: SWELLING FROM HIPS AND BELOW Time Seen by Provider: 08/23/18 17:24 Source: patient Mode of arrival: ambulatory Limitations: no limitations History of Present Illness Patient is a 68-year-old male who underwent a right-sided nephrectomy secondary to cancer at the middle of last month at the [facility]. He states that since his surgery he has had lower extremity swelling. He states that it has been worsening since then. He states that over the past 3 days with specifically over the past 24 hr he has noticed a significant worsening of the swelling in his bilateral lower extremities to include his scrotum going up into his chest. He denies any shortness of breath. Patient is incontinent of urine because he states that he cannot find his penis in order to urinate secondary to all of the swelling. He is ambulatory but it is very difficult secondary to the stiffness in his hips and his knees. He saw his primary care doctor 3 days ago and there was some talk about starting him on Lasix however this was not done because of his kidney function. He states that since that visit with his primary doctor this swelling has significantly worsened. Related Data Home Medications Medication Instructions Recorded Confirmed cetirizine 10 mg PO DAILY #0 03/05/12 08/23/18 clonidine HCl 0.2 mg PO BID #0 03/05/12 08/23/18 aspirin 81 mg PO QPM 06/15/18 08/23/18 atorvastatin [Lipitor] 40 mg PO QPM 06/15/18 08/23/18 ergocalciferol (vitamin D2) 50,000 unit PO QMONTH 06/15/18 08/23/18 [Vitamin D2] sitagliptin [Januvia] 100 mg PO DAILY 06/15/18 08/23/18 isosorbide mononitrate 60 mg PO DAILY 07/14/18 08/23/18 acetaminophen [Acetaminophen Extra 500 mg PO PRN PRN 08/23/18 08/23/18 Strength] enoxaparin 40 mg SUBCUT QAM 08/23/18 08/23/18 metoprolol succinate [Toprol XL] 100 mg PO BID 08/23/18 08/23/18 oxycodone 5 mg PO PRN PRN 08/23/18 08/23/18 Previous Rx's Medication Instructions Recorded nitroglycerin [Nitrostat] 0.4 mg SUBLINGUAL [id number] PRN #25 06/19/18 tab Allergies Allergy/AdvReac Type Severity Reaction Status Date / Time Iodinated Contrast- Oral and Allergy Intermediate Difficulty Verified 08/23/18 16:29 IV Dye Swallowing Review of Systems Constitutional Denies fever(s) Cardiovascular Denies chest pain and Denies dyspnea Respiratory Denies dyspnea Gastrointestinal Gastrointestinal: Denies abdominal pain, Denies change in bowel habits, Denies nausea and Denies vomiting Genitourinary Reports urinary incontinence Musculoskeletal Comments: Swelling bilateral lower extremities Integumentary/Breasts Denies rash Comments: Wound VAC on the lateral aspect of his abdominal wound Neurologic Denies behavioral changes Psychiatric Denies behavioral changes Hematologic/Lymphatic Comments: Not on anticoagulation PFSH Social History household members: spouse Smoking Status: Former smoker Social History household members: spouse Smoking Status: Former smoker Exam Initial Vital Signs Initial Vital Signs: Vital Signs Temperature 97.1 F L 08/23/18 16:25 Pulse Rate 75 08/23/18 16:25 Respiratory Rate 20 08/23/18 16:25 Blood Pressure 156/96 H 08/23/18 16:25 Pulse Oximetry 95 08/23/18 16:25 Const General: cooperative, well developed, well groomed and No acute distress Orientation: alert, awake and oriented x3 HENMT Head: normal to inspection and normocephalic Chest Chest: normal inspection of the chest and No tenderness Resp Effort & Inspection: normal respiratory effort Auscultation: clear to auscultation bilaterally Cardio Rate: regular rate Rhythm: regular rhythm GI Inspection: distended Palpation: soft, No firm and No tender Other: Well healing surgical scar from midline to his right flank consistent with his history of right-sided nephrectomy. Skin Lesions: no lesions Rashes: no rashes Neuro General: alert, awake and oriented x3 Extrem General: capillary refill normal and edema Other: Patient with significant nonpitting edema equal bilateral from his toes to his mid chest. Psych Appearance: grossly normal and well kempt Course Orders Ordered: ED Orders 08/23/18 16:35 XR chest 1V Stat 08/23/18 16:40 B Type Natriuretic Peptide Stat Complete Blood Count AUTO DIFF Stat Comprehensive Metabolic Panel Stat Lipase Stat 08/23/18 17:00 Prothrombin Time INR Stat Discontinued Medications Furosemide (Lasix) 40 mg IV NOW ONE Stop: 08/23/18 19:45 Oxycodone/Acetaminophen (Percocet 5/325) 2 tab PO NOW ONE Stop: 08/23/18 18:17 Last Admin: 08/23/18 18:26 Dose: 2 tab Vital Signs - 8 hr 08/23/18 16:25 08/23/18 17:48 08/23/18 18:46 Temperature 97.1 F L 97.1 F L Pulse Rate 75 75 85 Respiratory Rate 20 20 16 Blood Pressure 156/96 H 156/96 H Blood Pressure [Left Arm] 159/86 H Pulse Oximetry 95 95 97 MDM - SOB/Dyspnea Lab Data Attestation: I reviewed the patient's lab results. Result diagrams: 08/23/18 16:40 08/23/18 16:40 Lab Results 08/23/18 08/23/18 08/23/18 Range/Units 16:40 16:40 16:40 WBC 7.5 (4.5-11.0) X10^3/uL RBC 3.78 L (4.5-5.9) X10^6/uL Hgb 10.1 L (13.5-17.5) g/dL Hct 31.6 L (41-53) % MCV 83.5 (80-100) fL MCH 26.6 (26-34) PG MCHC 31.9 (30-36) % RDW 17.9 H (11.6-14.8) % Plt Count 273 (150-400) X10^3/uL Neut % (Auto) 61.2 (50-75) % Lymph % (Auto) 16.0 L (25-40) % [place] % (Auto) 5.6 (3-14) % Eos % (Auto) 15.9 H (2-4) % Baso % (Auto) 1.3 (0-2) % Neut # (Auto) 4600 (7837-0415) /uL Lymph # (Auto) 1200 (3892-6306) /uL [place] # (Auto) 400 (0-900) /uL Eos # (Auto) 1200 H (0-450) /uL Baso # (Auto) 100 (0-100) /uL PT (10.1-12.7) SECONDS INR (0.9-1.3) Sodium 135 L (137-145) mmol/L Potassium 4.6 (3.4-5.1) mmol/L Chloride 103 (98-107) mmol/L Carbon Dioxide 25 (22-32) mmol/L BUN 16 (9-20) mg/dL Creatinine 1.50 H (0.66-1.25) mg/dL Estimated GFR 46.5 L (>60) mL/min BUN/Creatinine Ratio 10.7 (6-22) Glucose 111 H (80-110) mg/dL Calcium 8.6 (8.4-10.2) mg/dL Total Bilirubin 0.3 (0.2-1.3) mg/dL AST 21 (17-59) IU/L ALT 24 (21-72) IU/L Alkaline Phosphatase 88 (38-126) U/L B-Natriuretic Peptide 137 H (<100) Total Protein 6.3 (6.3-8.2) g/dL Albumin 3.4 L (3.5-5.0) g/dL Globulin 2.9 (1.7-4.1) g/dL Albumin/Globulin Ratio 1.2 (1.0-2.8) Lipase 59 (23-300) U/L 08/23/18 Range/Units 17:00 WBC (4.5-11.0) X10^3/uL RBC (4.5-5.9) X10^6/uL Hgb (13.5-17.5) g/dL Hct (41-53) % MCV (80-100) fL MCH (26-34) PG MCHC (30-36) % RDW (11.6-14.8) % Plt Count (150-400) X10^3/uL Neut % (Auto) (50-75) % Lymph % (Auto) (25-40) % [place] % (Auto) (3-14) % Eos % (Auto) (2-4) % Baso % (Auto) (0-2) % Neut # (Auto) (2666-9418) /uL Lymph # (Auto) (1839-0050) /uL [place] # (Auto) (0-900) /uL Eos # (Auto) (0-450) /uL Baso # (Auto) (0-100) /uL PT 11.8 (10.1-12.7) SECONDS INR 1.0 (0.9-1.3) Sodium (137-145) mmol/L Potassium (3.4-5.1) mmol/L Chloride (98-107) mmol/L Carbon Dioxide (22-32) mmol/L BUN (9-20) mg/dL Creatinine (0.66-1.25) mg/dL Estimated GFR (>60) mL/min BUN/Creatinine Ratio (6-22) Glucose (80-110) mg/dL Calcium (8.4-10.2) mg/dL Total Bilirubin (0.2-1.3) mg/dL AST (17-59) IU/L ALT (21-72) IU/L Alkaline Phosphatase (38-126) U/L B-Natriuretic Peptide (<100) Total Protein (6.3-8.2) g/dL Albumin (3.5-5.0) g/dL Globulin (1.7-4.1) g/dL Albumin/Globulin Ratio (1.0-2.8) Lipase (23-300) U/L Imaging Data Chest x-ray: Radiologist's impression: ROCEDURE: XR CHEST 1V INDICATIONS: edema, shortness of breath TECHNIQUE: One view of the chest was acquired. COMPARISON: [facility], , XR CHEST 1V, 06/15/2018, 10:30. FINDINGS: Surgical changes and devices: None. Lungs and pleura: Mild pulmonary vascular congestion is seen. No focal infiltrate. No pleural effusions or pneumothorax. Mediastinum: Mediastinal contours appear normal. Heart size is mildly enlarged. Bones and chest wall: No suspicious bony lesions. Overlying soft tissues appear unremarkable. IMPRESSION: Cardiomegaly and mild pulmonary vascular congestion. No focal infiltrate, pleural effusion or pneumothorax. Dictated by: Liborio Stafford M.D. on 08/23/2018 at 17:11 Approved by: Liborio Stafford M.D. on 08/23/2018 at 17:12 [facility] Narrative Medical decision making narrative: Discussed the case with Dr. Cunningham with [facility] who stated that during the surgery the patient had his IVC tied off. We do suspect that the swelling is secondary to insufficient collateral formation. He did recommend that we give the patient Lasix. He was going to contact the operative surgeon and then contact us back for any further recommendations. Care turned over to night provider at change of shift to follow up. Discharge Plan Departure Prescriptions: No Action cetirizine 10 MG tablet 10 mg PO DAILY Qty: 0 RF: 0 clonidine HCl 0.2 MG tablet 0.2 mg PO BID Qty: 0 RF: 0 isosorbide mononitrate 60 mg Tablet Extended Release 24 Hr 60 mg PO DAILY RF: 0 aspirin 81 mg Tablet,Delayed Release (Dr/Ec) 81 mg PO QPM RF: 0 atorvastatin [Lipitor] 40 mg Tablet 40 mg PO QPM RF: 0 ergocalciferol (vitamin D2) [Vitamin D2] 50,000 unit Capsule 50,000 unit PO QMONTH RF: 0 sitagliptin [Januvia] 100 mg Tablet 100 mg PO DAILY RF: 0 nitroglycerin [Nitrostat] 0.4 mg Tablet, Sublingual 0.4 mg Sublingual [id number] PRN (Reason: Chest Pain) Qty: 25 RF: 0 metoprolol succinate [Toprol XL] 100 mg tablet extended release 24 hr 100 mg PO BID RF: 0 oxycodone 5 mg tablet 5 mg PO PRN PRN (Reason: pain) RF: 0 enoxaparin 40 mg/0.4 mL syringe 40 mg subcut QAM RF: 0 acetaminophen [Acetaminophen Extra Strength] 500 mg Tablet 500 mg PO PRN PRN (Reason: pain) RF: 0
[2018-08-23] MEDS: OXYCODONE/ACETAMINOPHEN 5/325 TABLET 2 TAB PO (18:26)
[2018-08-23 18:46] VITALS: BP 159/86; PULSE 85; RESP 16; O2SAT 97
[2018-08-23 19:52] VITALS: BP 155/88; PULSE 87; RESP 18; O2SAT 96
[2018-08-23 20:06] VITALS: BP 156/97; PULSE 84; RESP 12; O2SAT 98
[2018-08-23] MEDS: FUROSEMIDE 40 MG/4 ML VIAL IV (20:13)
[2018-08-23 20:57] VITALS: BP 148/90; PULSE 85; RESP 19; O2SAT 97
== END 2018-08-23 20:57 | disposition home or self-care (01) ==
PROVIDERS: Emergency Medicine; Emergency Provider Emergency Medicine; PCP General Practice
DX: R60.0 Localized edema (principal)
CPT/HCPCS: 36415; 36591; 71045; 80053; 83690; 83880; 85025; 85610; 96374; 99284; J1940

== ENCOUNTER 2018-08-24 18:10 | Emergency (ER) | payer MEDICARE, OTHER, SELFPAY ==
[2018-06-15 17:24] VITALS: BMI 38.0
[2018-08-24 18:13] VITALS: BMI 42.3
[2018-08-24 19:27] VITALS: BP 160/89; PULSE 89; RESP 20; TEMP 36.6; O2SAT 100; BMI 42.3
--- NOTE | 2018-08-24 20:00 | PC.NURSE ---
Pt states blood in ross catheter bag, with bloody urine leaking from catheter insertion site. Ross cath placed yesterday here in ER for lower extremity edema, scrotal edema, and incontinence. 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 Reports he thinks that they had to use a larger size of tube for catheter to allow for blood clots to pass in with previous Ross cath placements at . Pt states penis is spasming intermittently and has swelling present to scrotum and bi lat extremities with + 2 pitting edema present. Pt has hx of CA, with Right kidney removed on 07/27/18 with wound clean dry and dressing intact.
--- NOTE | 2018-08-24 20:25 | ED_ITS ---
HPI - Male Genitourinary General Chief complaint: Urogenital-Male Stated complaint: URINE BAG FILLING WITH BLOOD Time Seen by Provider: 08/24/18 19:38 Source: patient and old records reviewed Mode of arrival: ambulatory Limitations: no limitations History of Present Illness HPI Narrative: patient is a 68 year old male who presents with Doshi catheter problem. It was placed yesterday is for lower extremity edema and scrotal edema along with incontinence. His was placed to help with skin protection. He says that shortly after he returned home last night he noticed some pink in the Doshi catheter bag. Today the catheter started leaking on around him there was not much in the bag at all. Nursing was able to flush out some small blood clots. He does not have any prostate and is not on any blood thinners. He is complaining of some discomfort at the tip of his penis. Related Data Home Medications Medication Instructions Recorded Confirmed cetirizine 10 mg PO DAILY #0 03/05/12 08/23/18 clonidine HCl 0.2 mg PO BID #0 03/05/12 08/23/18 aspirin 81 mg PO QPM 06/15/18 08/23/18 atorvastatin [Lipitor] 40 mg PO QPM 06/15/18 08/23/18 ergocalciferol (vitamin D2) 50,000 unit PO QMONTH 06/15/18 08/23/18 [Vitamin D2] sitagliptin [Januvia] 100 mg PO DAILY 06/15/18 08/23/18 isosorbide mononitrate 60 mg PO DAILY 07/14/18 08/23/18 acetaminophen [Acetaminophen Extra 500 mg PO PRN PRN 08/23/18 08/23/18 Strength] enoxaparin 40 mg SUBCUT QAM 08/23/18 08/23/18 metoprolol succinate [Toprol XL] 100 mg PO BID 08/23/18 08/23/18 oxycodone 5 mg PO PRN PRN 08/23/18 08/23/18 Previous Rx's Medication Instructions Recorded nitroglycerin [Nitrostat] 0.4 mg SUBLINGUAL [id number] PRN #25 06/19/18 tab furosemide [Lasix] 20 mg PO DAILY #30 tab 08/23/18 lactulose 10 gram PO BID PRN #30 each 08/24/18 sulfamethoxazole-trimethoprim 1 tab PO BID 7 Days #14 tab 08/24/18 [Bactrim DS] Allergies Allergy/AdvReac Type Severity Reaction Status Date / Time Iodinated Contrast- Oral and Allergy Intermediate Difficulty Verified 08/24/18 18:13 IV Dye Swallowing Review of Systems Review of Systems GENERAL: Denies chills,fever HEENT: Denies throat pain RESPIRATORY: Denies dyspnea, cough, wheezing CARDIOVASCULAR: Denies chest pain, palpitations GASTROINTESTINAL: Denies nausea, vomiting : See HPI MUSCULOSKELETAL: Denies extremity pain, injury SKIN: No rash, no laceration, no pruritus NEUROLOGIC: Denies weakness, dizziness, headache, numbness 8 point review of systems is negative except for those stated above and HPI [facility] Medical History Diabetes (Acute) Hyperlipidemia (Acute) Hypertension (Acute) Renal cancer (Acute) Surgical History H/O prostatectomy (Acute) History of nephrectomy (Acute) Social History household members: spouse Smoking Status: Former smoker Social History household members: spouse Smoking Status: Former smoker Exam Initial Vital Signs Initial Vital Signs: Vital Signs Temperature 97.8 F 08/24/18 19:27 Pulse Rate 89 08/24/18 19:27 Respiratory Rate 20 08/24/18 19:27 Blood Pressure 160/89 H 08/24/18 19:27 Pulse Oximetry 100 08/24/18 19:27 GENERAL: Alert pleasant cooperative well-appearing male no acute distress HEENT: Head atraumatic,EOMI, pupils reactive, CARDIOVASCULAR: Regular rate and rhythm without murmurs, rubs or gallops. RESPIRATORY: Breath sounds equal bilaterally, no wheezes rales or rhonchi. ABDOMEN: Soft, nontender no guarding no rebound. Incision site noted on right side with wound VAC in place. Wound does appear to be healing. : Doshi catheter in place, urine is pink-tinged you can see through the tube EXTREMITIES: Nonpitting lower extremity edema compression socks are on to just below the knee NEUROLOGICAL: Alert and oriented x4.Normal gait and speech. SKIN: Warm, dry, no laceration, no petechiae, no rashes or lesions. Course Orders Ordered: ED Orders 08/24/18 20:36 Urinalysis and Microscopic Stat Urine Culture Stat Vital Signs - 8 hr 08/24/18 19:27 Temperature 97.8 F Pulse Rate 89 Respiratory Rate 20 Blood Pressure 160/89 H Pulse Oximetry 100 MDM - Male Genitourinary Lab Data Attestation: I reviewed the patient's lab results. Lab Results 08/24/18 Range/Units 20:36 Urine Color Red Urine Appearance Sl cloudy Urine pH 5.0 (4.5-8.0) Ur Specific [place] 1.015 (1.000-1.035) Urine Protein 1+ H (Negative) Urine Glucose (UA) Negative (Negative) g/dL Urine Ketones Negative (NEGATIVE) Urine Occult Blood 3+ H (Negative) Urine Nitrate Negative (Negative) Urine Bilirubin Negative (NEGATIVE) Urine Urobilinogen 0.2 (0.2) E.U./dL Ur Leukocyte Esterase Negative (NEGATIVE) Urine RBC >100/hpf (0-5/HPF) Urine WBC 1-5/hpf (0-5/HPF) Ur Squamous Epith Cells 0-1 /hpf Amorphous Sediment 1+ Urine Bacteria Occasional (0-1) D (None) Ur Culture Indicated? Specimen cultured MDM Narrative Medical decision making narrative: Occasional bacteria seen in urine in. He does have some discomfort at the tip will treat for UTI. They do not yet have an appointment with his urologist at the [facility]. I encouraged him to continue calling. Return to the ED if he should have any further problems. Discharge Plan Departure Patient Disposition: Home Clinical Impression: UTI (urinary tract infection), Constipation Discharge Date/Time: 08/24/18 21:18 Interventions: ED Discharge Assessment Last Done: 08/24/18 21:18 Instructions: Constipation, DI for Urinary Tract Infection (UTI) Activity Restrictions/Additional Instructions: *You have been diagnosed with UTI, constipation *What to do: *Continue to take medications as directed Bactrim 1 tablet twice a day for 7 days lactulose *Follow up with your primary care provider in 2-3 days follow-up with Urology *Return to ER if you should have Doshi catheter in are not working gross blood in catheter, increase in abdominal pain or any new, worsening or concerning symptoms Prescriptions: New sulfamethoxazole-trimethoprim [Bactrim DS] 800-160 mg tablet 1 tab PO BID 7 Days Qty: 14 RF: 0 lactulose 10 gram packet 10 gram PO BID PRN (Reason: constipation) Qty: 30 RF: 0 No Action cetirizine 10 MG tablet 10 mg PO DAILY Qty: 0 RF: 0 clonidine HCl 0.2 MG tablet 0.2 mg PO BID Qty: 0 RF: 0 isosorbide mononitrate 60 mg Tablet Extended Release 24 Hr 60 mg PO DAILY RF: 0 aspirin 81 mg Tablet,Delayed Release (Dr/Ec) 81 mg PO QPM RF: 0 atorvastatin [Lipitor] 40 mg Tablet 40 mg PO QPM RF: 0 ergocalciferol (vitamin D2) [Vitamin D2] 50,000 unit Capsule 50,000 unit PO QMONTH RF: 0 sitagliptin [Januvia] 100 mg Tablet 100 mg PO DAILY RF: 0 nitroglycerin [Nitrostat] 0.4 mg Tablet, Sublingual 0.4 mg Sublingual [id number] PRN (Reason: Chest Pain) Qty: 25 RF: 0 metoprolol succinate [Toprol XL] 100 mg tablet extended release 24 hr 100 mg PO BID RF: 0 oxycodone 5 mg tablet 5 mg PO PRN PRN (Reason: pain) RF: 0 enoxaparin 40 mg/0.4 mL syringe 40 mg subcut QAM RF: 0 acetaminophen [Acetaminophen Extra Strength] 500 mg Tablet 500 mg PO PRN PRN (Reason: pain) RF: 0 furosemide [Lasix] 20 mg tablet 20 mg PO DAILY Qty: 30 RF: 0 Referrals: Fredy Murillo MD [Primary Care Provider] -
[2018-08-24 20:51] LABS: Appearance Urine UA SL CLOUDY; Bilirubin Urine UA NEGATIVE (NEGATIVE); Glucose Urine UA NEGATIVE (Negative); Ketones Urine UA NEGATIVE (NEGATIVE); Leukocyte Esterase Urine UA NEGATIVE (NEGATIVE); Nitrite Urine UA NEGATIVE (Negative); Occult Blood Urine UA 3+ (Negative); Protein Urine UA 1+ (Negative); Specific Gravity Urine UA 1.015 (1.000-1.035); Urobilinogen Urine UA 0.2 E.U./dL (0.2)
[2018-08-24 20:52] LABS: Color Urine UA Red
[2018-08-24 20:57] LABS: Amorphous Sediment Urine 1+; Bacteria Urine Occasional (0-1); Culture Indicated Urine Specimen Cultured; RBC Urine >100/HPF (0-5/HPF); Squamous Epithelial Cell Urine 0-1 /HPF; WBC Urine 1-5/HPF (0-5/HPF)
== END 2018-08-24 21:18 | disposition home or self-care (01) ==
PROVIDERS: Emergency Provider Emergency Medicine; Family Provider General Practice; PCP General Practice
DX: N39.0 Urinary tract infection, site not specified (principal); K59.00 Constipation, unspecified
CPT/HCPCS: 51705; 81001; 81015; 87077; 87086; 87186; 99283

== ENCOUNTER 2018-08-25 04:28 | Emergency (ER) | payer MEDICARE, OTHER, SELFPAY ==
[2018-06-15 17:24] VITALS: BMI 38.0
--- NOTE | 2018-08-25 04:28 | ER_ITS ---
Kwan Pennington Ob 1950 CC: Doshi catheter problem Patient presents with of Doshi catheter problem. He was seen evaluated here just a few hours prior with of blood clock and Doshi catheter not draining. It was irrigated slightly clots cleared. He was also given antibiotics for probable UTI as well. He states that his catheter stopped draining again. However as he was getting out of the car he noticed a sudden increase in in the Doshi catheter bag and some clots that had dislodged. He continues to have no abdominal pain no nausea no vomiting. GENERAL: Denies chills, fatigue, malaise, fever, sweats, travel HEENT: Denies sinus pain, ear pain, sore throat, difficulty swallowing, neck pain RESPIRATORY: Denies dyspnea, cough, wheezing, hemoptysis, sputum. CARDIOVASCULAR: Denies chest pain, palpitations, orthopnea, edema GASTROINTESTINAL: Denies nausea, vomiting, abdominal pain, diarrhea, constipation, melena. : See HPI MUSCULOSKELETAL: Denies weakness, joint pain, or bony pain SKIN: No rash, no erythema, no pruritus NEUROLOGIC: Denies weakness, dizziness, headache, numbness, change in speech, confusion PSYCHIATRIC: No concerning psychosocial issues. 12 point review of systems is negative except for those stated above and HPI GENERAL: Well-appearing, well-nourished and in no acute distress. [facility] Medical History Diabetes (Acute) Hyperlipidemia (Acute) Hypertension (Acute) Renal cancer (Acute) Surgical History H/O prostatectomy (Acute) History of nephrectomy (Acute) Social History household members: spouse Smoking Status: Former smoker Social History household members: spouse Smoking Status: Former smoker EXAM: General: A&Ox3 CARDIOVASCULAR: peripheral pulses in tact, cap refill <2 sec RESPIRATORY: No respiratory distress, speaks in full sentences without difficulty ABDOMEN: Soft, nontender, no guarding or rebound : Doshi catheter in place some dark brown like urine all blood clots noted in Doshi catheter bag. You can see through the tubing it is not gross blood. EXTREMITIES: Normal range of motion, no clubbing or edema. Neurovascularly intact NEUROLOGICAL: Cranial nerves II through XII grossly intact. Normal gait and speech. SKIN: Warm, dry, no petechiae, no rashes or lesions. Diagnosis: Doshi catheter problem Patient and family are educated on how to irrigate at home. Again recommend follow-up with Urology.
[2018-08-25 04:30] VITALS: BP 152/82; PULSE 87; RESP 22; O2SAT 98; BMI 42.3
--- NOTE | 2018-08-25 08:03 | PC.NURSE ---
Pt had ross cath placed yesterday in ER for LE edema, scrotal edema and incontinence. PT has hx of Right kidney removal 07/27/18. Pt reported that a blood clot had blocked the drainage of cath, resolved upon arrival and returned to draining properly upon arrival. Pt ross cath was irrigated and returned amount irrigated, properly draining light strawberry colored urine and pt teaching performed on ross cath irrigation.
== END 2018-08-25 05:28 | disposition home or self-care (01) ==
PROVIDERS: Emergency Provider Emergency Medicine; PCP General Practice
DX: T83.9XXA Unspecified complication of genitourinary prosthetic device, implant and graft, initial encounter (principal)
CPT/HCPCS: 99282

== ENCOUNTER → 2018-09-03 10:56 | Outpatient (CLI) | payer MEDICARE, OTHER, SELFPAY ==
[2018-06-15 17:24] VITALS: BMI 38.0
== END ==
PROVIDERS: PCP General Practice; Visit Provider Family Medicine
DX: S31.100A Unspecified open wound of abdominal wall, right upper quadrant without penetration into peritoneal cavity, initial encounter (principal); T81.31XA Disruption of external operation (surgical) wound, not elsewhere classified, initial encounter
CPT/HCPCS: 11042

== ENCOUNTER → 2018-09-17 10:53 | Outpatient (CLI) | payer MEDICARE, OTHER, SELFPAY ==
[2018-06-15 17:24] VITALS: BMI 38.0
== END ==
PROVIDERS: PCP General Practice; Visit Provider Family Medicine
DX: Z48.817 Encounter for surgical aftercare following surgery on the skin and subcutaneous tissue (principal)
CPT/HCPCS: 99212